=== PATIENT | female | born 2000 | race Two or more races ===

== ENCOUNTER 2024-01-08 19:37 | Outpatient (REF) | payer MEDICAID, SELFPAY ==
[2024-01-09 03:47] LABS: CT PCR NOT DETECTED (Not Detect.); NG PCR NOT DETECTED (Not Detect.)
[2024-01-09 10:56] LABS: Bacterial Vaginosis PCR POSITIVE (Negative); Candida Group PCR NOT DETECTED (Not Detect); Candida glab krusei PCR NOT DETECTED (Not Detect); Trichomonas vaginalis PCR NOT DETECTED (Not Detect)
== END 2024-01-08 19:38 | disposition home or self-care (01) ==
LOC: HO.HHCLNP 19:37
PROVIDERS: Visit Provider Internal Medicine
DX: N93.8 Other specified abnormal uterine and vaginal bleeding (principal)
CPT/HCPCS: 0352U; 0353U

== ENCOUNTER 2024-01-17 09:43 | Outpatient (REF) | payer MEDICAID, SELFPAY ==
--- NOTE | ~2024-01-17 | US_ITS ---
EXAMINATION: US ABDOMEN COMPLETE CLINICAL INFORMATION: Generalized abdominal pain radiating to lower abdomen. COMPARISON: None available. TECHNIQUE: Real-time imaging of the abdominal viscera. Technically limited study secondary to bowel gas. FINDINGS: PANCREAS: Limited visualization of pancreatic tail and head. Imaged portion of pancreatic body is unremarkable. ABDOMINAL AORTA: Unremarkable. INFERIOR VENA CAVA: Visualized portions are normal. LIVER: Hepatomegaly, 16.7 cm. Mildly increased hepatic parenchymal heterogeneity and echogenicity could be associated with hepatocellular disease/hepatic steatosis and substantially limits visualization. Correlation with liver function tests and clinical exam recommended to determine further management. GALLBLADDER: No gallstones. No gallbladder wall thickening COMMON BILE DUCT: Normal in caliber measuring 0.2 cm in diameter. RIGHT KIDNEY: No hydronephrosis. No renal calculi. Limited visualization. The kidney measures 10.5 cm in maximum dimension. LEFT KIDNEY: No hydronephrosis. No renal calculi. Limited visualization. The kidney measures 11.1 cm in maximum dimension. SPLEEN: Normal. The spleen measures 9.6 cm in maximum dimension. FREE FLUID: None. US/US abdomen complete IMPRESSION: Hepatomegaly, 16.7 cm. Mildly increased hepatic parenchymal heterogeneity and echogenicity could be associated with hepatocellular disease/hepatic steatosis and substantially limits visualization. Correlation with liver function tests and clinical exam recommended to determine further management.
== END 2024-01-17 09:44 | disposition home or self-care (01) ==
LOC: HO.US 09:43
PROVIDERS: PCP Internal Medicine; Visit Provider Internal Medicine
DX: R10.84 Generalized abdominal pain (principal); N93.8 Other specified abnormal uterine and vaginal bleeding
CPT/HCPCS: 76700

== ENCOUNTER 2024-02-20 12:30 | Outpatient (REF) | payer MEDICAID, SELFPAY ==
[2024-02-20 13:01] LABS: MANUAL DIFF FLAG NO
[2024-02-20 13:25] LABS: Basophils Percent Auto 0.2 % (0-2); Eosinophils Absolute Auto 0.1 X10*3/uL (0.0-0.4); Eosinophils Percent Auto 2.3 % (0-4); Hematocrit 37.3 % (37.0-47.0); Hemoglobin 12.6 g/dl (12.0-16.0); Imm Gran Abs Auto 0.01 X10*3/uL (0.00-0.03); Imm Gran Pct Auto 0.2 % (0.0-0.4); Lymphocytes Percent Auto 38.2 % (20-40); Mean Corpuscular HGB Conc 33.8 g/dl (31.0-35.0); Mean Corpuscular Hemoglobin 28.8 pg (27.0-33.0); Mean Corpuscular Volume 85.2 fL (80.0-98.0); Mean Platelet Volume 10.4 fL (9.4-12.3); Monocytes Absolute Auto 0.5 X10*3/uL (0.1-1.2); Monocytes Percent Auto 8.9 % (2-11); Neutrophils Absolute Auto 2.7 x10*3/uL (2.0-8.3); Neutrophils Percent Auto 50.2 % (45-73); Platelet Count 261 X10*3/uL (160-400); Red Blood Count 4.38 X10*6/uL (4.20-5.50); Red Cell Distribution Width 12.2 % (11.0-16.0); White Blood Count 5.3 X10*3/uL (4.8-10.8)
[2024-02-20 16:32] LABS: Alanine Aminotransferase 8 U/L (0-31); Albumin Level 4.7 g/dL (3.5-5.0); Alkaline Phosphatase 59 U/L (39-117); Anion Gap 14 (12-20); Aspartate Amino Transferase 16 U/L (5-31); Bilirubin Total 0.6 mg/dL (0.0-1.0); Blood Urea Nitrogen 10 mg/dL (9-16); Calcium 10.1 mg/dL (8.4-10.2); Carbon Dioxide 23 mmol/L (22-29); Chloride 105 mmol/L (96-108); Estimated Glomerular Filt Rate > 60; Glucose Random 82 mg/dL (60-115); Sodium 138 mmol/L (135-145); Total Protein 7.8 g/dL (6.5-8.0)
[2024-02-20 16:47] LABS: TSH reflex Free T4 1.15 uIU/mL (0.32-4.0)
[2024-02-21 09:23] LABS: HBS Num1 > 1000.00 mIU/mL (0-7.99); HBc Num1 0.13 S/CO (0.00-0.79); HBsAGNum1 0.34 S/CO (0.00-0.99); Hepatitis A Antibody IgM 0.37 Index (0-0.79); Hepatitis B Core Antibody Nonreactive (Nonreactive); Hepatitis B Surface Antigen Negative (Negative); ~HepC Num1 0.11 S/CO (0.00-0.79); ~Hepatitis A Antibody IgM Nonreactive (Nonreactive); ~Hepatitis B Surface Antibody REACTIVE (Nonreactive); ~Hepatitis C Antibody Nonreactive (Nonreactive)
== END 2024-02-20 12:31 | disposition home or self-care (01) ==
LOC: HO.HHCL 12:30
PROVIDERS: Visit Provider Internal Medicine
DX: R10.84 Generalized abdominal pain (principal)
CPT/HCPCS: 36415; 80053; 84443; 85025; 86704; 86706; 86709; 86803; 87340

== ENCOUNTER 2024-03-06 16:14 | Outpatient (REF) | payer MEDICAID, SELFPAY | END 2024-03-06 16:15 | disposition home or self-care (01) | LOC: HO.HHCLNP 16:14 | PROVIDERS: Visit Provider Internal Medicine | DX: Z12.4 Encounter for screening for malignant neoplasm of cervix (principal) | CPT/HCPCS: 36415; 87625; 88175 ==

== ENCOUNTER 2024-05-05 09:20 | Outpatient (REF) | payer MEDICAID, SELFPAY | END 2024-05-05 09:21 | disposition home or self-care (01) | LOC: HO.HHCL 09:20 | PROVIDERS: Visit Provider Internal Medicine | DX: R10.84 Generalized abdominal pain (principal) | CPT/HCPCS: 87338 ==

== ENCOUNTER 2024-06-24 10:45 | Outpatient (REF) | payer MEDICAID, SELFPAY ==
[2024-06-24] MEDS: iohexoL 350 MG/ML 100 ML INFUS..BTL 85 ML IV (13:00)
[2024-06-24] MEDS: Barium Sulfate Oral (Berry) 450 ML ORAL.SUSP 900 ML PO (13:00)
== END 2024-06-24 10:46 | disposition home or self-care (01) ==
LOC: HO.CT 10:45
PROVIDERS: PCP Internal Medicine; Visit Provider Internal Medicine
DX: R10.84 Generalized abdominal pain (principal); K76.0 Fatty (change of) liver, not elsewhere classified; N93.8 Other specified abnormal uterine and vaginal bleeding; R10.13 Epigastric pain
CPT/HCPCS: 74177; Q9967

== ENCOUNTER 2024-09-10 13:18 | Outpatient (REF) | payer MEDICAID, SELFPAY ==
--- OUTSIDE RECORDS SUMMARY | 2024-09-10 14:11 | XMS_ITS | Encounter Summary ---
Author Organization [employer] Address [address] [facility] [address] 7t [place] [address] Care Team Providers Care Central Scheduler Name Role Phone Marly Palma MD Primary Care Provider + Reason for Visit * Reason Onset Date Comments Results 09/02/2024 Encounter Details Date Type Department Care Team ([facility] st Contact Info) Description 09/02/2024 Telephone [facility] MEDICINE [address] [place], [place] [phone] Korin Westbrook RN Results Social History Tobacco [...] EST TC placed to pt with S production truck driver Wilmer #[id number] Palma's message below. Pt informed that the CT of the abd/pelvis from May showed a left ovarian cyst. Pt confirmed that she has a f/u appt with [facility] on 09/10/2024. Pt will make sure that the CABLE SPLICER APPRENTICE provider is aware of these results and [...] tellher that she def needs to see CABLE SPLICER APPRENTICE (referral was made last year) to fu on DUB and see if ovarian cyst needs fu (sometimes they don't need any fu at all). I will fu at upcoming appt re upper abd pain documented in this encounter Plan of Treatment Upcoming Encounters Date Type Department Care Team (Late st Contact Info) Description 10/01/2024 10:15 AM EST Office Visit [facility] MEDICINE [address] [place] [address] Marly Palma MD [address] [place] [address] 12/30/2024 10:00 AM EDT Office Visit [facility] ADULT DENTAL [address] [place] [address] Lili, Ritu [address] [place] [address] documented as of this encounter Visit Diagnoses Not on filedocumented in this encounter Additional Health Concerns Assessment Noted Time PHQ-9 Depression Total Score: 0 03/06/20 11:06 AM EDT documented as of this encounter Care Teams Central Scheduler Relationship Specialty Start Date End Date Marly Palma MD [address] [place] [phone] PCP - General Internal Medicine 03/17/24 documented as of this encounter
--- OUTSIDE RECORDS SUMMARY | 2024-09-10 14:11 | XMS_ITS | Encounter Summary ---
Author Organization [employer] Address [address] [facility] 7t [place] [address] Care Team Providers Care Studio Camera Operator Name Role Phone Marly Palma MD Primary Care Provider + Reason for Visit * Reason Onset Date Comments Call Back Request 04/30/2024 Encounter Details Date Type Department Care Team ([facility] Contact Info) Description 04/30/2024 Telephone [facility] MEDICINE [address] [place], [place] [phone] Marly Palma MD [address] [place] [address] Call Back Request Social History Tobacco Use [...] she attempted to have it done at [facility] but they advised pt to contact pcp regarding insurance. Please contact pt at [phone]. (Turkish Speaker) documented in this encounter Plan of Treatment Upcoming Encounters Date Type Department Care Team (Late st Contact Info) Description 10/01/2024 10:15 AM EST Office Visit [facility] MEDICINE [address] [place] [address] Marly Palma MD [address] [place] [address] 12/30/2024 10:00 AM EDT Office Visit [facility] ADULT DENTAL [address] [place] [address] Ritu Pearson [address] [place] [address] documented as of this encounter Visit Diagnoses Not on filedocumented in this encounter Additional Health Concerns Assessment Noted Time PHQ-9 Depression Total Score: 0 03/06/20 24 11:06 AM EDT documented as of this encounter Care Teams Studio Camera Operator Relationship Specialty Start Date End Date Marly Palma MD [address] [place] [phone] PCP - General Internal Medicine 03/17/24 documented as of this encounter
--- OUTSIDE RECORDS SUMMARY | 2024-09-10 14:11 | XMS_ITS | Encounter Summary ---
Demographics Address [address] [facility] [address] [place] [address] Home Phone Mobile Phone Email Address Preferred Language es Marital Status Single Faith Affiliation Unknown Race Other Race Ethnic Group Unknown Author Organization [employer] Address [address] [facility] [employer] 7t [place] [address] Care Team Providers Care Senior Scientist Name Role Phone Marly Palma MD Primary Care Provider + Reason for Visit * Reason Comments Scaling And Root Planing TAMI OSBORNE Encounter Details Date Type Department Care Team ([facility] st Contact Info) Description 08/12/2024 11:00 AM EST Office Visit [facility] ADULT DENTAL [address] [place] [address] Lili, Ritu [address] [place] [address] Periodontal disease (Primary Dx); Dental calculus; Gingival [...] Timeout Time: 1111 (SRP UL, LL) Location: [facility] Tooth: UL and LL Procedure: Scaling and Root Planing Verified the above with patient, server service assistant, and provider. Confirmed via patient's chart, intraorally and by radiographs. Sink Cutter: not applicable Medical Hx: Vitals: Blood pressure [...] patient including brushing technique and flossing. Recommendations: [place] two times daily, modified wayne technique, Floss daily, Electric toothbrush, Soft bristle toothbrush, [place] Tongue, Anti-sensitivity toothpaste, Listerine. Recall Frequency: 08/19/24 [...] Description 10/01/2024 10:15 AM EST Office Visit [facility] MEDICINE [address] [place] [address] Marly Palma MD [address] [place] [address] 12/30/2024 10:00 AM EDT Office Visit [facility] ADULT DENTAL [address] [place], [place] [phone] Ritu Pearson [address] [place] [address] documented as of this encounter Procedures Procedure [...] documented as of this encounter Care Teams Senior Scientist Relationship Specialty Start Date End Date Marly Palma MD [address] [place] [address] PCP - General Internal Medicine 03/17/24 documented as of this encounter
--- OUTSIDE RECORDS SUMMARY | 2024-09-10 14:11 | XMS_ITS | Clinical Summary ---
Author Organization [employer] Address [address] [facility] 7t [place] [address] Care Team Providers Care Property Maintenance Supervisor Name Role Phone Marly Palma MD Primary [...] pending and pt has information to call INTERNET E COMMERCE SPECIALIST for appoitnemt - f/u in 1 month, will refer to our INTERNET E COMMERCE SPECIALIST service to withdrawal Nexplanon if needed, may need OCTs (if no INTERNET E COMMERCE SPECIALIST appointment is made) Assessment & Plan (03/06/2024 11:45 AM EDT): R/o or could be related to Nexplanon. Keep symptom diary. Refer to INTERNET E COMMERCE SPECIALIST. Assessment & Plan (01/09/2024 2:56 PM EDT): RO vaginosis, STI Order abd US Will schedule appt for pelvic exam May need to change BC method, will discuss at upcoming appt. Encounters Date Type Department Care Team Description 09/10/2024 10:30 AM EST Office Visit [facility] ADULT DENTAL [address] [place] [phone] DDS Retained dental root (Primary Dx) 09/02/[address] [address] Korin Westbrook, [place] Results 08/19/2024 11:00 AM EST Office Visit [facility] ADULT DENTAL [address] [place] [phone] LiliRitu cat Periodontal disease (Primary Dx); Dental calculus 08/12/2024 11:00 AM EST Office Visit [facility] ADULT DENTAL [address] [place] [address] Lili Ritu Periodontal disease (Primary Dx); Dental calculus; Gingival bleeding 08/07/[address] [address] Patsy Ji, [place] Care Management ([facility] Graduation) 07/31/[address] [address] Marly Palma MD September07/23/[address] [address] Patsy Ji, RN Care Management ([facility] follow up call) 07/23/2024 Patient Outreach [address] [address] Marly Palma MD Care Coordination ([facility] Rebeka Turpinquez telephone call graduate) 07/23/2024 Patient Outreach [address] [address] Marly Palma MD Care Coordination ([address] telephone call outreach) 07/09/[address] [address] Patsy Ji RN Care Management ([facility] follow up call) 07/09/2024 Patient Outreach [address] [address] Marly Palma MD Care Coordination ([address] telephone call outreach) 06/30/2024 11:00 AM EST Office Visit [facility] ADULT DENTAL [address] [place] [address] LiliRitu Dental calculus (Primary Dx); Periodontal disease; Gingival bleeding 06/24/2024 8:00 AM EST Office Visit [facility] ADULT DENTAL [address] [place] [address] Nicole Guerrier DDS Encounter for dental examination (Primary Dx); Dental calculus; Dental caries 06/23/[address] [address] Patsy Ji RN Care Management ([facility] TC #[id number]) 06/23/2024 Patient Outreach [address] [address] Marly Palma MD Care Coordination ([address] telephone call outreach) from Last 3 [...] Description 10/01/2024 10:15 AM EST Office Visit [facility] MEDICINE [address] [place] [address] Marly Palma MD [address] [place] [address] 12/30/2024 10:00 AM EDT Office Visit [facility] ADULT DENTAL [address] [place], [place] [phone] Lili, Ritu [address] [place], [place] [phone] Health Maintenance Due Date Last Done Comments [...] EST Narrative 08/25/2024 1:34 PM EST ? [facility] ?[address] ?[place] [address] ? [address] Scan Report ? Signed ? Patient: Wendy Guerrero ?MR#: [id number] ?? 53 ? : 2000 ?Acct:[id number] ? Age/Sex: 23 / F ?ADM Date: 06/24/24 ? Loc: HO.CT ? Attending Dr: Marly Palma MD ? Ordering Physician: Marly Palma MD ?? Date of Service: 06/24/24 ?? Procedure(s): CT abdomen pelvis w IV con ?? Accession Number(s): [id number] ? cc: Marly Palma MD ? Report Number: ?? [id number]: Total DLP = ??320.00 mGy-cm ?? EXAMINATION: [...] DD/ 1237 ? TD/TT: 06/24/24 1301 ? Bee Raiser: ? Procedure Note Donotuseinterpreter, Image - 08/25/[address] [address] [address] Scan Report Signed Patient: Wendy GuerreroMR#: [id number] 53 : 2000Acct:[id number] Age/Sex: 23 / FADM Date: 06/24/24 Loc: HO.CT Attending Dr: Marly Palma MD Ordering Physician: Marly Palma MD Date of Service: 06/24/24 Procedure(s): CT abdomen pelvis w IV con Accession Number(s): [id number] cc: Marly Palma MD Report Number: [id number]: Total DLP = 320.00 mGy-cm EXAMINATION: CT [...] by: Lilian Escoto MD 08/25/2024 01:31 PM [facility] Dictated By: Lilian Escoto MD Signed By: <Electronically signed by Lilian Escoto MD in OV> 08/25/24 1331 DD/ 1237 TD/TT: 06/24/24 1301 Bee Raiser: us Marly Palma MD IMG CT PROCEDURES Final Result * ThinPrep?? Imaging Pap Refl HPV mRNA(if ASCUS,ASC-H,LSIL,HSIL,MARIA LUZ)Refl Genotype (03/06/2024 11:39 AM EDT) HPV nRNA E6/E7 [facility] HPV 16,18/45 [facility] SOURCE: SEE NOTE [facility] Comment:None given Report Status: [facility] Clinical Information: SEE NOTE [facility] Comment:None given LMP: SEE NOTE [facility] Comment:NONE GIVEN Prev. PAP: SEE NOTE [facility] Comment:NONE GIVEN Prev. BX: SEE NOTE [facility] Comment:NONE GIVEN Statement Of Adequacy: SEE NOTE [facility] Comment:Satisfactory for tito luation.Endocervical/transformation zone componentpresent. General Categorization: [facility] Interpretation/Result: SEE NOTE [facility] Comment:Cytology Results: Ne gative for intraepitheliallesion or malignancy. Cytology Comment SEE NOTE [facility] Comment:This Pap test has be en evaluated with computerassisted technology. Recreation Specialist: SEE NOTE [facility] Comment:ZL, CT(ASCP)CT scree yuli location: [facility] [address]Myuln preparation performed at: [facility] [address] [facility] No. [id number] Review Recreation Specialist: [facility] Pathologist [facility] PAP Infection [facility] See Note SEE NOTE [facility] Comment:EXPLANATORY NOTE:The Pap is a screening test for cervical cancer. It isnot a diagnostic test and is subject to false negativeand false positive results. It is most reliable when asatisfactory sample, regularly obtained, is submittedwith relevant clinical findings and history, and whenthe Pap result is evaluated along with historic andcurrent clinical information.THIS TEST WAS PERFORMED AT:[employer] [address] [id number] MERATI,MD 03/06/2024 11:3 9 AM EDT 03/06/2024 4:15 PM EDT Narrative [facility] - 03/12/2024 11:43 AM EDT SEE SCANNED RESULTS IN EMR us Marly Palma MD LAB CYTOLOGY ORDERABLES Final Result [facility] [address] [place] [phone] * Hepatitis Panel, General (02/20/2024 12:35 PM EDT) Hepatitis A IgM Nonreactive Nonreactive [facility] Comment:IgM antibodies to DELGADO V not detected; does not exclude earlyacute or recovered HAV infection. ~Hepatitis B Surface Antibody REACTIVE Nonreactive [facility] Comment:REACTIVE: > 11.99 mI U/mL Hepatitis B Core Antibody Nonreactive Nonreactive [facility] Hepatitis C Antibody Nonreactive Nonreactive [facility] Comment:Antibodies to HCV no t detected; does not exclude early acuteHCV infection. Hepatitis B Surface Ag Negative Negative [facility] Blood 02/20/2024 12:3 5 PM EDT 02/20/2024 3:59 PM EDT Marly Palma MD LAB BLOOD ORDERABLES Fin al Result [facility] [address] [place] [address] [phone] from Last 3 Months or Most Recently Relevant to Health Maintenance Insurance [place] [facility] MEDICAID STAND ADULT Care Teams Property Maintenance Supervisor Relationship Specialty Start Date End Date Marly Palma MD [address] [place] [address] PCP - General Internal Medicine 03/17/24
--- OUTSIDE RECORDS SUMMARY | 2024-09-10 14:11 | XMS_ITS | Encounter Summary ---
Author Organization [employer] Address [address] [facility] 7t [place] [address] Care Team Providers Care Restorer Paper And Prints Name Role Phone Marly Palma MD Primary Care Provider + Reason for Visit * Reason Comments Extraction Encounter Details Date Type Department Care Team ([facility] st Contact Info) Description 09/10/2024 10:30 AM EST Office Visit [facility] ADULT DENTAL [address] [place] [address]DS [address] [place] [address] Retained dental root (Primary Dx) Social History [...] 1038 (ext on tooth # 19) Location: [facility] Tooth: Mandible and #19 Procedure: Extraction Verified the above with patient, resident programs assistant, and provider. Confirmed via patient's chart, intraorally and by radiographs. Radiologic Technology Teacher: not applicable Chief Complaint Patient presents with [...] U as needed / IMP. / Xin Stock Preparation Supervisor: Meagan Trammell Dentist: Fab Lane DDS documented in this encounter Plan of Treatment Upcoming Encounters Date Type Department Care Team (Late st Contact Info) Description 10/01/2024 10:15 AM EST Office Visit [facility] MEDICINE [address] [place] [address] Marly Palma MD [address] [place] [address] 12/30/2024 10:00 AM EDT Office Visit [facility] ADULT DENTAL [address] [place] [address] Ritu Pearson [address] [place] [address] documented as of this encounter Procedures Procedure [...] documented as of this encounter Care Teams Restorer Paper And Prints Relationship Specialty Start Date End Date Marly Palma MD [address] [place] [address] PCP - General Internal Medicine 03/17/24 documented as of this encounter
--- OUTSIDE RECORDS SUMMARY | 2024-09-10 14:11 | XMS_ITS | Encounter Summary ---
Demographics Address [address] [facility] [address] [place] [address] Home Phone Mobile Phone Email Address Preferred Language es Marital Status Single Restoration Affiliation Unknown Race Other Race Ethnic Group Unknown Author Organization [employer] Address [address] [facility] 7t [place] [address] Care Team Providers Care Shoe Handler Name Role Phone Marly Palma MD Primary Care Provider + Reason for Visit * Reason Comments Scaling And Root Planing SRP UR, LR quad s Encounter Details Date Type Department Care Team ([facility] st Contact Info) Description 08/19/2024 11:00 AM EST Office Visit [facility] ADULT DENTAL [address] [place] [address] Lili, Ritu [address] [place] [address] Periodontal disease (Primary Dx); Dental calculus Social [...] your housing situation today? I have salvatore duncna 02/25/[address] you li [...] 08/19/2024 11:00 AM EST Patient ID: Wendy Guerrero is a 23 y.o. female. Time Out: Timeout Date: 08/19/24, Timeout Time: 1106 (SRP UR, LR quads) Location: [facility] Tooth: Maxilla and Mandible Procedure: Scaling and Root Planing Verified the above with patient, reproductive healthcare assistant, and provider. Confirmed via patient's chart, intraorally and by radiographs. Security Public Safety Officer: not applicable Medical Hx: Vitals: Blood pressure [...] patient including brushing technique and flossing. Recommendations: [place] two times daily, modified awyne technique, Floss daily, Electric toothbrush, Soft bristle toothbrush, [place] Tongue, Anti-sensitivity toothpaste Recall Frequency: in December [...] Description 10/01/2024 10:15 AM EST Office Visit [facility] MEDICINE [address] [place] [phone] Marly Palma MD [address] [place] [address] 12/30/2024 10:00 AM EDT Office Visit [facility] ADULT DENTAL [address] [place], [place] [phone] Ritu Pearson [address] [place] [address] documented as of this encounter Procedures Procedure [...] documented as of this encounter Care Teams Shoe Handler Relationship Specialty Start Date End Date Marly Palma MD [address] [place] [address] PCP - General Internal Medicine 03/17/24 documented as of this encounter
[2024-09-10 15:14] LABS: Hematocrit 35.9 % (37.0-47.0); Hemoglobin 12.2 g/dl (12.0-16.0); Mean Corpuscular Hemoglobin 28.4 pg (27.0-33.0); Mean Corpuscular Volume 83.7 fL (80.0-98.0); Platelet Count 262 X10*3/uL (160-400); Red Blood Count 4.29 X10*6/uL (4.20-5.50); Red Cell Distribution Width 12.6 % (11.0-16.0); White Blood Count 10.4 X10*3/uL (4.8-10.8)
[2024-09-10 16:06] LABS: HCG Quantitative < 2 mIU/mL; TSH reflex Free T4 1.41 uIU/mL (0.32-4.0)
[2024-09-11 13:57] LABS: CT PCR NOT DETECTED (Not Detect.); NG PCR NOT DETECTED (Not Detect.)
== END 2024-09-10 13:19 | disposition home or self-care (01) ==
LOC: HO.LNP 13:18
PROVIDERS: PCP Internal Medicine; Visit Provider Obstetrics & Gynecology
DX: N93.9 Abnormal uterine and vaginal bleeding, unspecified (principal); Z32.02 Encounter for pregnancy test, result negative
CPT/HCPCS: 81025; 84443; 84702; 85027; 87491; 87591; 99202

== ENCOUNTER 2024-09-10 13:18 | Outpatient (AMB) | payer MEDICAID, SELFPAY ==
--- OUTSIDE RECORDS SUMMARY | 2024-09-10 13:26 | XMS_ITS | Clinical Summary ---
Author Organization [employer] Address [address] [facility] [address] [place] [address] Care Team Providers Care Executive Pilot Name Role Phone Marly Palma MD Primary Care Provider + Allergies No known active allergies Medications famotidine (Pepcid) 40 MG tablet Take 1 tablet (40 mg) by mouth Once per day. 30 tablet 4 06/01/20 25 Active Additional Information Patient not taking.Reported on 09/10/2024 Sodium Fluoride (PreviDent 5000 Plus) 1.1 % cream Apply 1 mg to teeth 3 times daily. 1 g 3 4 Active Additional Information Patient not taking.Reported on 09/10/2024 Active Problems Problem Noted Date Diagnosed Date Retained dental root 09/10/2024 Dental calculus 06/30/2024 Periodontal disease 06/30/2024 Gingival bleeding 06/30/2024 Tinea corporis 06/01/2024 Assessment & Plan (06/04/2024 3:03 PM EST): On arms and chest Rx Lotrisone, re consult prn. Fatty liver 05/04/2024 Assessment & Plan (05/04/2024 11:43 AM EDT): - LFTs are normal, we discussed about cutting down on processed foods, sodas, and fatty meals - pt does not drink alcohol - discussed about weight reduction and increased exercise - will f/u LFTs in 6-12 months - f/u CT scan abd Epigastric pain 03/06/2024 Assessment & Plan (06/04/2024 3:01 PM EST): H.Pilory is NEG. Significantly improved, probably gastritis. Complete famotidine x 2mo Use sucralfate tid ac meals prn only. FU in 4m, if sxs are recurrent, will send to GI Assessment & Plan (03/06/2024 11:47 AM EDT): R/o PUD. Use Sulcrafate 1 gram TID AC Meals. Order HCG. Order CT scan Abdomen due to Hepatomegaly. Hepatomegaly 03/06/2024 Assessment & Plan (03/06/2024 11:48 AM EDT): US IFTs are normal. Order CT Abdomen and follow up with me in 4 weeks. BV (bacterial vaginosis) 01/09/2024 Generalized abdominal pain 01/08/2024 Assessment & Plan (05/04/2024 11:41 AM EDT): - discontinue Sucralfate and Famotidine for DUB, will obtain h. Pylori and f/u in 4 weeks - ct scan of abd pending, need further evaluation of hepatomegaly - r/o endometriosis Assessment & Plan (01/09/2024 2:56 PM EDT): Unclear related to ovulation? Endometriosis? BV? Order vaginal swabs, abd US and labs FU w me with results. Take ibuprofen prn DUB (dysfunctional uterine bleeding) 01/08/2024 Overview (05/04/2024): 03/09, 03/26, 04/16, 04/28 Assessment & Plan (06/04/2024 3:02 PM EST): Resolved? Sp BV rx. Patient will continue tracking menstruation and fu with me in 4m Continue Nexplanon. Assessment & Plan (05/04/2024 12:19 PM EDT): - ? Related to Nexplanon ? Uterine fibroid? - CT scan of the pelvis is pending and pt has information to call [facility] for appoitnemt - f/u in 1 month, will refer to our [facility] service to withdrawal Nexplanon if needed, may need OCTs (if no [facility] appointment is made) Assessment & Plan (03/06/2024 11:45 AM EDT): R/o or could be related to Nexplanon. Keep symptom diary. Refer to [facility]. Assessment & Plan (01/09/2024 2:56 PM EDT): RO vaginosis, STI Order abd US Will schedule appt for pelvic exam May need to change BC method, will discuss at upcoming appt. Encounters Date Type Department Care Team Description 09/10/2024 10:30 AM EST Office Visit [facility] [address] [place] [phone] DDS Retained dental root (Primary Dx) 09/02/[address] [address] oKrin Westbrook, [place] Results 08/19/2024 11:00 AM EST Office Visit [facility] [address] [place] [phone] LiliRitu cat Periodontal disease (Primary Dx); Dental calculus 08/12/2024 11:00 AM EST Office Visit [facility] [address] [place] [address] Lili Ritu Periodontal disease (Primary Dx); Dental calculus; Gingival bleeding 08/07/[address] [address] Patsy Ji, [place] Care Management ([facility] Graduation) 07/31/[address] [address] Marly Palma MD September07/23/[address] [address] Patsy Ji, RN Care Management ([facility] follow up call) 07/23/2024 Patient Outreach [address] [address] Marly Palma MD Care Coordination ([facility] -[facility] Rebeka Turpinquez telephone call graduate) 07/23/2024 Patient Outreach [address] [address] Marly Palma MD Care Coordination ([address] telephone call outreach) 07/09/[address] [address] Patsy Ji RN Care Management ([facility] follow up call) 07/09/2024 Patient Outreach [address] [address] Marly Palma MD Care Coordination ([address] telephone call outreach) 06/30/2024 11:00 AM EST Office Visit [facility] [address] [place] [phone] LiliRitu Dental calculus (Primary Dx); Periodontal disease; Gingival bleeding 06/24/2024 8:00 AM EST Office Visit [facility] [address] [place] [phone] Nicole Guerrier DDS Encounter for dental examination (Primary Dx); Dental calculus; Dental caries 06/23/[address] [address] Patsy Ji RN Care Management ([facility] TC #[id number]) 06/23/2024 Patient Outreach [address] [address] Marly Palma MD Care Coordination ([address] telephone call outreach) from Last 3 Months Immunizations Name Administration Dates Next Due Influenza, seasonal, injectable, preservative fr ee 05/04/2024 Social History Tobacco Use Types Packs/Day Years Used Date Smoking Tobacco: Never Smokeless Tobacco: Never Tobacco Cessation:Counseling Given: Not Answered Alcohol Use Standard Drinks/Week Comments Never 0 (1 standard drink = 0.6 oz pur e alcohol) Depression Answer Date Recorded Patient Health Questionnaire-9 Score 0 03/06/2024 Patient Health Questionnaire-9 Score 0 03/06/2024 Last PHQ-9: Questionnaire Data Not on file 0 03/06/2024 Housing Stability Answer Date Recorded What is your housing situation today? I have salvatore duncan 02/25/[address] you li ve. Do you have problems with any of the following? None of the above 02/25/2024 Food Insecurity Answer Date Recorded Within the past 12 months, y ou worried that your food would run out before you got money to buy more: Sometimes True 2023 Within the past 12 months,th e food you bought just didn't last and you didn't have enough money to get more: Sometimes True 05/12/2024 Transportation Answer Date Recorded In the past 12 months, has l ack of transportation kept you from medical appts, meetings, work or from getting things needed for daily living? Yes, it has kept me from medical appointments or getting medications. 05/12/2024 Utilities Answer Date Recorded In the past 12 months, has t he electric, gas, oil or water company threatened to shut off services in your home? No 02/25/2024 Depression Answer Date Recorded Patient Health Questionnaire-2 Score 0 03/06/2024 Internet Access Answer Date Recorded Internet Access Q1 Yes 03/30/2024 Internet Access Q2 Not on file 03/30/2024 Comments No Sex and Gender Information Value Date Recorded Sex Assigned at Female 12/13/2023 1:19 PM EDT Legal Sex Female 12:10 PM EDT Gender Identity Female 12/13/2023 1:19 PM EDT Sexual Orientation Straight 01/08/2024 11 :08 AM EDT Last Filed Vital Signs Vital Sign Reading Time Taken Comments Blood Pressure 122/88 09/10/2024 10:39 AM EST Pulse 83 06/01/2024 3:39 PM EST Temperature 36.9 ??C (98.5 ??F) 06/01/2024 3:39 PM ES T Respiratory Rate 16 06/01/2024 3:39 PM EST Oxygen Saturation 99% 06/01/2024 3:39 PM EST Inhaled Oxygen Concentration - - Weight 63 kg (138 lb 12.8 oz) 06/01/2024 3:39 PM EST Height 160 cm (5' 3 ) 06/01/2024 3:39 PM EST Body Mass Index 24.59 06/01/2024 3:39 PM EST Plan of Treatment Upcoming Encounters Date Type Department Care Team (Late st Contact Info) Description 10/01/2024 10:15 AM EST Office Visit [facility] [address] [place] [address] Marly Palma MD [address] [place] [address] 12/30/2024 10:00 AM EDT Office Visit [facility] [address] [place], [place] [phone] Lili, Ritu [address] [place], [place] [phone] Health Maintenance Due Date Last Done Comments HIV Screening 1998 Family Planning (PISQ) 2013 HPV Vaccines (1 - 3-dose series) 2013 DTaP/Tdap/Td Vaccines (1 - Tdap) 2017 Hepatitis A Vaccines (1 of 2 - Risk 2-dose series) 2017 Hepatitis B Vaccines (1 of 3 - 19+ 3-dose series) 2017 COVID-19 Vaccine ( - 2023-2 5 season) 2024 Dental Oral Exam 12/23/2024 06/24/2024 Dental Prophylaxis 12/30/2024 06/30/2024 Depression Screening 03/06/2025 03/06/2024, 03/06/2024 SDOH Screening 05/12/2025 05/12/2024 Alcohol/Substance Use Screening 06/01/2025 06/01/2024 Dental X-Ray: Bitewings 06/25/2025 06/24/2024 Tobacco Screening 09/10/2025 09/10/2024 Pap Smear 03/06/2027 03/06/2024 Dental X-Ray: Full Mouth 06/25/2027 06/24/2024 Zoster Vaccines (1 of 2) 2048 RSV Patients and Patients Aged 60 years or older (1 - 1-dose 75+ series) 2073 Hepatitis C Screening Completed 02/20/2024 Influenza Vaccine Completed 05/04/2024 HIB Vaccines Aged Out No longer eligi ble based on patient's age to complete this topic IPV Vaccines Aged Out No longer eligi ble based on patient's age to complete this topic Meningococcal Vaccine Aged Out No elisa logan eligible based on patient's age to complete this topic Pneumococcal Vaccine: Pediatrics (0 to 5 Years) and At-Risk Patients (6 to 49) Years) Aged Out No longer eligible b ased on patient's age to complete this topic RSV under 20 months Aged Out No longe r eligible based on patient's age to complete this topic Rotavirus Vaccines Aged Out No longer eligible based on patient's age to complete this topic Procedures Procedure Name Priority Date/Time Associated Diagnosis Comments CASE PRESENTATION, DETAILED AND EXTENSIVE TREATMENT PLANNING Routine 09/10/2024 10:30 AM EST 19 EXTRACTION, ERUPTED TOOTH OR EXPOSED ROOT (ELEVATION/FORCEPS REMOVAL) Routine 09/10/2024 10:30 AM EST CASE PRESENTATION, DETAILED AND EXTENSIVE TREATMENT PLANNING Routine 08/19/2024 11:00 AM EST ORAL HYGIENE INSTRUCTIONS Routine 08/19/2024 11:00 AM EST LR PERIODONTAL SCALING AND ROOT PLANING - 4 OR MORE TEETH PER QUADRANT Routine 08/19/2024 11:00 AM EST UR PERIODONTAL SCALING AND ROOT PLANING - 4 OR MORE TEETH PER QUADRANT Routine 08/19/2024 11:00 AM EST CASE PRESENTATION, DETAILED AND EXTENSIVE TREATMENT PLANNING Routine 08/12/2024 11:00 AM EST Periodontal disease Dental calculus Gingival bleeding ORAL HYGIENE INSTRUCTIONS Routine 08/12/2024 11:00 AM EST Periodontal disease Dental calculus Gingival bleeding LL PERIODONTAL SCALING AND ROOT PLANING - 4 OR MORE TEETH PER QUADRANT Routine 08/12/2024 11:00 AM EST Periodontal disease Dental calculus Gingival bleeding UL PERIODONTAL SCALING AND ROOT PLANING - 4 OR MORE TEETH PER QUADRANT Routine 08/12/2024 11:00 AM EST Periodontal disease Dental calculus Gingival bleeding CASE PRESENTATION, DETAILED AND EXTENSIVE TREATMENT PLANNING Routine 06/30/2024 11:00 AM EST Dental calculus Periodontal disease Gingival bleeding ORAL HYGIENE INSTRUCTIONS Routine 06/30/2024 11:00 AM EST Dental calculus Periodontal disease Gingival bleeding PROPHYLAXIS - ADULT Routine 06/30/2024 1 1:00 AM EST Dental calculus Periodontal disease Gingival bleeding CT ABDOMEN PELVIS W CONTRAST Routine 06/24/2024 12:37 PM EST DUB (dysfunctional uterine bleeding) Fatty liver Generalized abdominal pain CASE PRESENTATION, DETAILED AND EXTENSIVE TREATMENT PLANNING Routine 06/24/2024 8:00 AM EST Encounter for dental examination Dental calculus Dental caries COMPREHENSIVE ORAL EVALUATION - NEW OR ESTABLISHED PATIENT Routine 06/24/2024 8:00 AM EST Encounter for dental examination Dental calculus Dental caries INTRAORAL - COMPLETE SERIES OF RADIOGRAPHIC IMAGES Routine 06/24/2024 8:00 AM EST Encounter for dental examination Dental calculus Dental caries 30 EXTRACTION Routine 06/24/2024 12:00 AM EST THINPREP?? IMAGING PAP REFL HPV MRNA(IF ASCUS,ASC-H,LSIL) Routine 03/06/2024 11:39 AM EDT HEPATITIS PANEL, GENERAL Routine 02/20/2024 12:35 PM EDT Generalized abdominal pain from Last 3 Months or Most Recently Relevant to Health Maintenance Results * CT Abdomen Pelvis w/ Contrast (06/24/2024 12:37 PM EST) Anatomical Region Laterality Modality Body, Pelvis, Abdomen Computed T omography 06/24/2024 12:3 7 PM EST Narrative 08/25/2024 1:34 PM EST ? [facility] ?[address] ?[place] [address] ? CT Scan Report ? Signed ? Patient: Wendy Guerrero ?MR#: [id number] ?? 53 ? : 2000 ?Acct:[id number] ? Age/Sex: 23 / F ?ADM Date: 06/24/24 ? Loc: HO.CT ? Attending Dr: Marly Palma MD ? Ordering Physician: Marly Palma MD ?? Date of Service: 06/24/24 ?? Procedure(s): CT abdomen pelvis w IV con ?? Accession Number(s): [id number] ? cc: Marly Palma MD ? Report Number: ?? [id number]: Total DLP = ??320.00 mGy-cm ?? EXAMINATION: ?? CT ABDOMEN AND PELVIS WITH CONTRAST ? CLINICAL INFORMATION: ?? Chronic abdominal pain ? COMPARISON: ?? Ultrasound dated 01/17/2024 ? TECHNIQUE: ?? Multidetector volumetric images were obtained from the superior aspect ?? of the liver through the pubic symphysis following administration 85 mL ?? of Omnipaque 350 intravenous contrast. Sagittal and coronal reformatted ?? images were obtained on the technologist's workstation. ? Oral contrast: No ? This CT examination was performed using dose optimization techniques as ?? appropriate, variously including the following: ?? *Automated exposure control ?? *Adjustment of mA and/or kV according to patient size (this includes ?? techniques or standardized protocols for targeted exams where dose is ?? matched to indication/reason for exam; i.e. extremities or head) ?? *Use of iterative reconstruction technique ?? DLP: 320 mGycm ? FINDINGS: ? LUNG BASES: Unremarkable. ? ABDOMINAL AND PELVIC WALL: ??Unremarkable. ? LIVER AND BILIARY TREE: Liver measures upper limits of normal at 15.9 ?? cm in the craniocaudal dimension. No focal hepatic lesion or ?? intrahepatic biliary ductal dilatation. ? GALLBLADDER: Unremarkable. ? PANCREAS: Unremarkable. ? SPLEEN: Unremarkable. ? ADRENAL GLANDS: Unremarkable. ? KIDNEYS AND URETERS: Unremarkable. ? GASTROINTESTINAL TRACT: Unremarkable. ??The appendix is within normal ?? limits. ? VASCULAR: Unremarkable ? LYMPH NODES/PERITONEUM: No lymphadenopathy. ? FREE FLUID: None. ? BLADDER: Unremarkable. ? PELVIC VISCERA: Left adnexal intraovarian 2.9 x 1.9 cm cyst. ? OSSEOUS STRUCTURES: Unremarkable. ? CT/CT abdomen pelvis w IV con ?? IMPRESSION: ?? * ??Liver measures upper limits of normal at 15.9 cm in the craniocaudal ?? dimension. No focal hepatic lesion or intrahepatic biliary ductal ?? dilatation. ? * ??Left adnexal intraovarian 2.9 cm cyst. ? Electronically signed by: ??Lilian Escoto MD ??08/25/2024 01:31 PM EST RP ? Dictated By: ?Lilian Escoto MD ? Signed By: ?<Electronically signed by Lilian Escoto MD in OV> ? 08/25/ 1331 ? DD/ 1237 ? TD/TT: 06/24/24 1301 ? Aquaculture Farmer: ? Procedure Note Donotuseinterpreter, Image - 08/25/[address] [address] [address] Scan Report Signed Patient: Wendy GuerreroMR#: [id number] 53 : 2000Acct:[id number] Age/Sex: 23 / FADM Date: 06/24/24 Loc: HO.CT Attending Dr: Marly Palma MD Ordering Physician: Marly Palma MD Date of Service: 06/24/24 Procedure(s): CT abdomen pelvis w IV con Accession Number(s): [id number] cc: Marly Palma MD Report Number: [id number]: Total DLP = 320.00 mGy-cm EXAMINATION: CT ABDOMEN AND PELVIS WITH CONTRAST CLINICAL INFORMATION: Chronic abdominal pain COMPARISON: Ultrasound dated 01/17/2024 TECHNIQUE: Multidetector volumetric images were obtained from the superior aspect of the liver through the pubic symphysis following administration 85 mL of Omnipaque 350 intravenous contrast. Sagittal and coronal reformatted images were obtained on the technologist's workstation. Oral contrast: No This CT examination was performed using dose optimization techniques as appropriate, variously including the following: *Automated exposure control *Adjustment of mA and/or kV according to patient size (this includes techniques or standardized protocols for targeted exams where dose is matched to indication/reason for exam; i.e. extremities or head) *Use of iterative reconstruction technique DLP: 320 mGycm FINDINGS: LUNG BASES: Unremarkable. ABDOMINAL AND PELVIC WALL: Unremarkable. LIVER AND BILIARY TREE: Liver measures upper limits of normal at 15.9 cm in the craniocaudal dimension. No focal hepatic lesion or intrahepatic biliary ductal dilatation. GALLBLADDER: Unremarkable. PANCREAS: Unremarkable. SPLEEN: Unremarkable. ADRENAL GLANDS: Unremarkable. KIDNEYS AND URETERS: Unremarkable. GASTROINTESTINAL TRACT: Unremarkable. The appendix is within normal limits. VASCULAR: Unremarkable LYMPH NODES/PERITONEUM: No lymphadenopathy. FREE FLUID: None. BLADDER: Unremarkable. PELVIC VISCERA: Left adnexal intraovarian 2.9 x 1.9 cm cyst. OSSEOUS STRUCTURES: Unremarkable. CT/CT abdomen pelvis w IV con IMPRESSION: * Liver measures upper limits of normal at 15.9 cm in the craniocaudal dimension. No focal hepatic lesion or intrahepatic biliary ductal dilatation. * Left adnexal intraovarian 2.9 cm cyst. Electronically signed by: Lilian Escoto MD 08/25/2024 01:31 PM [facility] Dictated By: Lilian Escoto MD Signed By: <Electronically signed by Lilian Escoto MD in OV> 08/25/24 1331 DD/ 1237 TD/TT: 06/24/24 1301 Aquaculture Farmer: us Marly Palma MD IMG CT PROCEDURES Final Result * ThinPrep?? Imaging Pap Refl HPV mRNA(if ASCUS,ASC-H,LSIL,HSIL,MARIA LUZ)Refl Genotype (03/06/2024 11:39 AM EDT) HPV nRNA E6/E7 [facility] HPV 16,18/45 [facility] SOURCE: SEE NOTE [facility] Comment:None given Report Status: [facility] Clinical Information: SEE NOTE [facility] Comment:None given LMP: SEE NOTE [facility] Comment:NONE GIVEN Prev. PAP: SEE NOTE [facility] Comment:NONE GIVEN Prev. BX: SEE NOTE [facility] Comment:NONE GIVEN Statement Of Adequacy: SEE NOTE [facility] Comment:Satisfactory for tito luation.Endocervical/transformation zone componentpresent. General Categorization: [facility] Interpretation/Result: SEE NOTE [facility] Comment:Cytology Results: Ne gative for intraepitheliallesion or malignancy. Cytology Comment SEE NOTE [facility] Comment:This Pap test has be en evaluated with computerassisted technology. Scout Sniper: SEE NOTE [facility] Comment:ZL, CT(ASCP)CT scree yuli location: [facility] [id number] preparation performed at: [facility] [address] [facility] No. [id number] Review Scout Sniper: [facility] Pathologist [facility] PAP Infection [facility] See Note SEE NOTE [facility] Comment:EXPLANATORY NOTE:The Pap is a screening test for cervical cancer. It isnot a diagnostic test and is subject to false negativeand false positive results. It is most reliable when asatisfactory sample, regularly obtained, is submittedwith relevant clinical findings and history, and whenthe Pap result is evaluated along with historic andcurrent clinical information.THIS TEST WAS PERFORMED AT:[facility] [address] [id number] MERATI,MD 03/06/2024 11:3 9 AM EDT 03/06/2024 4:15 PM EDT Narrative [facility] - 03/12/2024 11:43 AM EDT SEE SCANNED RESULTS IN EMR us Marly Palma MD LAB CYTOLOGY ORDERABLES Final Result [facility] [address] [place] [phone] * Hepatitis Panel, General (02/20/2024 12:35 PM EDT) Hepatitis A IgM Nonreactive Nonreactive [facility] Comment:IgM antibodies to DELGADO V not detected; does not exclude earlyacute or recovered HAV infection. ~Hepatitis B Surface Antibody REACTIVE Nonreactive [facility] Comment:REACTIVE: > 11.99 mI U/mL Hepatitis B Core Antibody Nonreactive Nonreactive [facility] Hepatitis C Antibody Nonreactive Nonreactive [facility] Comment:Antibodies to HCV no t detected; does not exclude early acuteHCV infection. Hepatitis B Surface Ag Negative Negative [facility] Blood 02/20/2024 12:3 5 PM EDT 02/20/2024 3:59 PM EDT Marly Palma MD LAB BLOOD ORDERABLES Fin al Result [facility] [address] [place] [address] [phone] from Last 3 Months or Most Recently Relevant to Health Maintenance Insurance [place] [facility] MEDICAID STAND ADULT Care Teams Executive Pilot Relationship Specialty Start Date End Date Marly Palma MD [address] [place] [address] PCP - General Internal Medicine 03/17/24
--- OUTSIDE RECORDS SUMMARY | 2024-09-10 13:26 | XMS_ITS | Encounter Summary ---
Author Organization [employer] Address [address] [facility] 7t [place] [address] Care Team Providers Care Voting Machine Repairer Name Role Phone Marly Palma MD Primary Care Provider + Reason for Visit * Reason Onset Date Comments Call Back Request 04/30/2024 Encounter Details Date Type Department Care Team ([facility] Contact Info) Description 04/30/2024 Telephone [facility] [address] [place], [place] [phone] Marly Palma MD [address] [place] [address] Call Back Request Social History Tobacco Use Types Packs/Day Years Used Date Smoking Tobacco: Never Smokeless Tobacco: Never Alcohol Use Standard Drinks/Week Comments Never 0 [...] before you got money to buy more: Never True 02/25/2024 Within the past 12 months,th e food you bought just didn't last and you didn't have enough money to get more: Never True Transportation Answer Date Recorded In the past 12 months, has l ack of transportation kept you from medical appts, meetings, work or from getting things needed for daily living? No 02/25/2024 Utilities Answer Date Recorded In the past [...] Orientation Straight 01/08/2024 11 :08 AM EDT documented as of this encounter Miscellaneous Notes * Telephone Encounter - Yo Westley - 04/30/2024 10:13 AM EDT Tc from pt calling in regards to CT scan of the abdomen stating she attempted to have it done at [facility] but they advised pt to contact pcp regarding insurance. Please contact pt at [phone]. (Mongolian Speaker) documented in this encounter Plan of Treatment Upcoming Encounters Date Type Department Care Team (Late st Contact Info) Description 10/01/2024 10:15 AM EST Office Visit [facility] [address] [place] [address] Marly Palma MD [address] [place] [address] 12/30/2024 10:00 AM EDT Office Visit [facility] ADULT DENTAL [address] [place] [address] Ritu Pearson [address] [place] [address] documented as of this encounter Visit Diagnoses Not on filedocumented in this encounter Additional Health Concerns Assessment Noted Time PHQ-9 Depression Total Score: 0 03/06/20 24 11:06 AM EDT documented as of this encounter Care Teams Voting Machine Repairer Relationship Specialty Start Date End Date Marly Palma MD [address] [place] [address] PCP - General Internal Medicine 03/17/24 documented as of this encounter
--- OUTSIDE RECORDS SUMMARY | 2024-09-10 13:26 | XMS_ITS | Encounter Summary ---
Demographics Address [address] [facility] [address] [place] [address] Home Phone Mobile Phone Email Address Preferred Language es Marital Status Single Caodaism Affiliation Unknown Race Other Race Ethnic Group Unknown Author Organization [employer] Address [address] [facility] 7t [place] [address] Care Team Providers Care Anvil Worker Name Role Phone Marly Palma MD Primary Care Provider + Reason for Visit * Reason Comments Scaling And Root Planing TAMI OSBORNE Encounter Details Date Type Department Care Team ([facility] st Contact Info) Description 08/12/2024 11:00 AM EST Office Visit [facility] ADULT DENTAL [address] [place] [address] Lili, Ritu [address] [place] [address] Periodontal disease (Primary Dx); Dental calculus; Gingival bleeding Social History Tobacco Use Types Packs/Day Years [...] AM EDT documented as of this encounter Last Filed Vital Signs Vital Sign Reading Time Taken Comments Blood Pressure 108/66 08/12/2024 11:10 AM EST Pulse - - Temperature - - Respiratory Rate - - Oxygen Saturation - - Inhaled Oxygen Concentration - - Weight - - Height - - Body Mass Index - - documented in this encounter Progress Notes * Ritu Pearson - 08/12/2024 11:00 AM EST Patient ID: Wendy Guerrero is a 23 y.o. female. Time Out: Timeout Date: 08/12/24, Timeout Time: 1111 (SRP UL, LL) Location: [facility] Tooth: UL and LL Procedure: Scaling and Root Planing Verified the above with patient, logging assistant, and provider. Confirmed via patient's chart, intraorally and by radiographs. Senior Medical Technologist: not applicable Medical Hx: Vitals: Blood pressure 108/66. Medications, Med Hx reviewed with patient and updated in chart. Treatment Provided Dental procedures in this visit D4341 - PERIODONTAL SCALING AND ROOT PLANING - 4 OR MORE TEETH PER QUADRANT UL (Completed) Service provider: Ritu Pearson Billdeep provider: Nicole Guerrier DDS D4341 - PERIODONTAL SCALING AND ROOT PLANING - 4 OR MORE TEETH PER QUADRANT LL (Completed) Service provider: Ritu Pearson Billdeep provider: Nicole Guerrier DDS D1330 - ORAL HYGIENE INSTRUCTIONS (Completed) Service provider: Ritu Pearson Billing provider: Nicole Guerrier DDS D9450 - ADJUNCTIVE GENERAL SERVICES - PROFESSIONAL VISITS - CASE PRESENTATION, SUBSEQUENT TO DETAILED AND EXTENSIVE TREATMENT PLANNING (Completed) Service provider: Ritu Pearson Billing provider: Nicole Guerrier DDS Topical: 20% Benzocaine Anesthesia: 2% Lidocaine (Xylocaine) w/ 1:100,000 epinephrine Number of Cartridges: 1.5 Injection Type: Buccal infiltration, Palatal infiltration, Long buccal nerve block, Mental nerve block, and mandibular incisal. Confirmed profound anesthesia. Oral Cancer Screening: No lesions Head/Neck Exam: raised dark mole on face Instruments Used: Ultrasonic Scalers and Hand Scalers Fluoride: N/A Calculus: Moderate and Subgingival Plaque: Moderate and Generalized Stain: Light Bleeding: Moderate Gingiva: Edematous OH: Poor Oral hygiene instructions provided to patient including brushing technique and flossing. Recommendations: [place] two times daily, modified wayne technique, Floss daily, Electric toothbrush, Soft bristle toothbrush, [place] Tongue, Anti-sensitivity toothpaste, Listerine. Recall Frequency: 08/19/24 for SRP UR, LR quads Pt still has #19 to EXO, the root is horizontally placed. NV: Dr. Lane for EXO #19 Hygienist: Ritu Pearson RDH * Nicole Guerrier DDS - 08/12/2024 11:00 AM EST I have reviewed the documentation and dental procedures made by the rendering provider, Ritu Pearson RDH, and approve their chart entries for this visit. Nicole Guerrier DDS documented in this encounter Plan of Treatment Upcoming Encounters Date Type Department Care Team (Late st Contact Info) Description 10/01/2024 10:15 AM EST Office Visit [facility] MEDICINE [address] [place] [phone] Marly Palma MD [address] [place] [address] 12/30/2024 10:00 AM EDT Office Visit [facility] ADULT DENTAL [address] [place], [place] [phone] Ritu Pearson [address] [place] [address] documented as of this encounter Procedures Procedure Name Priority Date/Time Associated Diagnosis Comments LL PERIODONTAL SCALING AND ROOT PLANING - [...] EST Periodontal disease Dental calculus Gingival bleeding documented in this encounter Visit Diagnoses Diagnosis Periodontal disease- Primary Unspecified gingival and periodontal disease Dental calculus Accretions on teeth Gingival bleeding Other specified periodontal diseases documented in this encounter Additional Health Concerns Assessment Noted Time PHQ-9 Depression Total Score: 0 03/06/20 11:06 AM EDT documented as of this encounter Care Teams Anvil Worker Relationship Specialty Start Date End Date Marly Palma MD [address] [place] [address] PCP - General Internal Medicine 03/17/24 documented as of this encounter
--- OUTSIDE RECORDS SUMMARY | 2024-09-10 13:26 | XMS_ITS | Encounter Summary ---
Demographics Address [address] [facility] [address] [place] [address] Home Phone Mobile Phone Email Address Preferred Language es Marital Status Single Church Affiliation Unknown Race Other Race Ethnic Group Unknown Author Organization [employer] Address [address] [facility] 7t [place] [address] Care Team Providers Care Manager Local Name Role Phone Marly Palma MD Primary Care Provider + Reason for Visit * Reason Comments Scaling And Root Planing SRP UR, LR quad s Encounter Details Date Type Department Care Team ([facility] st Contact Info) Description 08/19/2024 11:00 AM EST Office Visit [facility] ADULT DENTAL [address] [place] [address] Lili, Ritu [address] [place] [address] Periodontal disease (Primary Dx); Dental calculus Social History Tobacco Use Types Packs/Day Years [...] Sign Reading Time Taken Comments Blood Pressure 108/70 08/19/2024 11:05 AM EST Pulse - - Temperature - - Respiratory Rate - - Oxygen Saturation - - Inhaled Oxygen Concentration - - Weight - - Height - - Body Mass Index - - documented in this encounter Progress Notes * Ritu Pearson - 08/19/2024 11:00 AM EST Patient ID: Wendy Geurrero is a 23 y.o. female. Time Out: Timeout Date: 08/19/24, Timeout Time: 1106 (SRP UR, LR quads) Location: [facility] Tooth: Maxilla and Mandible Procedure: Scaling and Root Planing Verified the above with patient, machine assistant, and provider. Confirmed via patient's chart, intraorally and by radiographs. Gold Layer: not applicable Medical Hx: Vitals: Blood pressure 108/70. Medications, Med Hx reviewed with patient and updated in chart. Treatment Provided Dental procedures in this visit D4341 - PERIODONTAL SCALING AND ROOT PLANING - 4 OR MORE TEETH PER QUADRANT UR (Completed) Service provider: Ritu Pearson Billing provider: Nicole Guerrier DDS D4341 - PERIODONTAL SCALING AND ROOT PLANING - 4 OR MORE TEETH PER QUADRANT LR (Completed) Service provider: Ritu Pearson Billdeep provider: [...] (Xylocaine) w/ 1:100,000 epinephrine Number of Cartridges: 1 Injection Type: Buccal infiltration, Palatal infiltration, Long buccal nerve block, Mental nerve block, Nasopalatine nerve block, and mandibular incisal. Confirmed profound anesthesia. Oral Cancer Screening: No lesions Head/Neck Exam: large raised mole on right side upper lip Instruments Used: Ultrasonic Scalers and Hand Scalers Fluoride: N/A Calculus: Moderate and Subgingival Plaque: Light, Moderate, and Generalized Stain: Light Bleeding: Light and Moderate, post-op rinsed with chlorhexidine. Gingiva: Edematous OH: needs improvement. Oral hygiene instructions provided to patient including brushing technique and flossing. Recommendations: [place] two times daily, modified wayne technique, Floss daily, Electric toothbrush, Soft bristle toothbrush, [place] Tongue, Anti-sensitivity toothpaste Recall Frequency: in December 2024 for prophy and perio chart post SRP NV: Dr. Francisco for restorations and Dr. Lane for EXO #19 root. Hygienist: Ritu Pearson RDH * Nicole Guerrier DDS - 08/19/2024 11:00 AM EST I have reviewed the documentation and dental procedures made by the rendering provider, Ritu Pearson RDH , and approve their chart entries for this visit. Nicole Guerrier DDS documented in this encounter Plan of Treatment Upcoming Encounters Date Type Department Care Team (Late st Contact Info) Description 10/01/2024 10:15 AM EST Office Visit [facility] MEDICINE [address] [place] [phone] Marly Palma MD [address] [place] [address] 12/30/2024 10:00 AM EDT Office Visit [facility] ADULT DENTAL [address] [place], [place] [phone] Ritu Pearson [address] [place] [address] documented as of this encounter Procedures Procedure Name Priority Date/Time Associated Diagnosis Comments LR PERIODONTAL SCALING AND ROOT PLANING - 4 OR MORE TEETH PER QUADRANT Routine 08/19/2024 11:00 AM EST UR PERIODONTAL SCALING AND ROOT PLANING - 4 OR MORE TEETH PER QUADRANT Routine 08/19/2024 11:00 AM EST ORAL HYGIENE INSTRUCTIONS Routine 2024 11:00 AM EST CASE PRESENTATION, DETAILED AND EXTENSIVE TREATMENT PLANNING Routine 08/19/2024 11:00 AM EST documented in this encounter Visit Diagnoses Diagnosis Periodontal disease- Primary Unspecified gingival and periodontal disease Dental calculus Accretions on teeth documented in this encounter Additional Health Concerns Assessment Noted Time PHQ-9 Depression Total Score: 0 03/06/20 11:06 AM EDT documented as of this encounter Care Teams Manager Local Relationship Specialty Start Date End Date Marly Palma MD [address] [place] [phone] PCP - General Internal Medicine 03/17/24 documented as of this encounter
--- OUTSIDE RECORDS SUMMARY | 2024-09-10 13:26 | XMS_ITS | Encounter Summary ---
Author Organization [employer] Address [address] [place] [address] Care Team Providers Care Dye Jig Operator Name Role Phone Marly Palma MD Primary Care Provider + Reason for Visit * Reason Onset Date Comments Results 09/02/2024 Encounter Details Date Type Department Care Team ([facility] st Contact Info) Description 09/02/[address] [facility] [address] [place], [place] [phone] Korin Westbrook RN Results Social History Tobacco Use Types Packs/Day Years [...] is your housing situation today? I have salvatorejania duncan 02/25/[address] you [...] encounter Miscellaneous Notes * Telephone Encounter - Korin Westbrook RN - 09/02/2024 2:27 PM EST TC placed to pt with S perfusionist Wilmer #[id number] Palma's message below. Pt informed that the CT of the abd/pelvis from May showed a left ovarian cyst. Pt confirmed that she has a f/u appt with [facility] on 09/10/2024. Pt will make sure that the CORN PRESS OPERATOR provider is aware of these results and the proceeding care/interventions needed. Pt also reminded of upcoming appt with PCP on 09/03/[address] Palma will discuss this information further. ----- Message from Marly Palma MD sent at 09/02/2024 1:17 PM EST ----- CT scan abd/pelvis on 06/24/24 (due to abd pain/DUB) showed left ovarian cyst which could be physiological due to hormonal changes? (Unclear if patient still nexplanon?). Please call patient and tellher that she def needs to see CORN PRESS OPERATOR (referral was made last year) to fu on DUB and see if ovarian cyst needs fu (sometimes they don't need any fu at all). I will fu at upcoming appt re upper abd pain documented in this encounter Plan of Treatment Upcoming Encounters Date Type Department Care Team (Late st Contact Info) Description 10/01/2024 10:15 AM EST Office Visit [facility] [address] [place] [address] Marly Palma MD [address] [place] [address] 12/30/2024 10:00 AM EDT Office Visit [facility] ADULT DENTAL [address] [place] [address] Lili, Ritu [address] [place] [address] documented as of this encounter Visit Diagnoses Not on filedocumented in this encounter Additional Health Concerns Assessment Noted Time PHQ-9 Depression Total Score: 0 03/06/20 11:06 AM EDT documented as of this encounter Care Teams Dye Jig Operator Relationship Specialty Start Date End Date Marly Palma MD [address] [place] [phone] PCP - General Internal Medicine 03/17/24 documented as of this encounter
--- OUTSIDE RECORDS SUMMARY | 2024-09-10 13:26 | XMS_ITS | Encounter Summary ---
Author Organization [employer] Address [address] [facility] 7t [place] [address] Care Team Providers Care Tree Deadener Name Role Phone Marly Palma MD Primary Care Provider + Reason for Visit * Reason Comments Extraction Encounter Details Date Type Department Care Team ([facility] st Contact Info) Description 09/10/2024 10:30 AM EST Office Visit [facility] ADULT DENTAL [address] [place] [address] DDS [address] [place] [address] Retained dental root (Primary Dx) Social History Tobacco Use Types Packs/Day Years [...] Pressure 122/88 09/10/2024 10:39 AM EST Pulse - - Temperature - - Respiratory Rate - - Oxygen Saturation - - Inhaled Oxygen Concentration - - Weight - - Height - - Body Mass Index - - documented in this encounter Progress Notes * Fab Lane, DDS - 09/10/2024 10:30 AM EST Patient ID: Wendy Guerrero is a 24 y.o. female. Time Out: Timeout Date: 09/10/24, Timeout Time: 1038 (ext on tooth # 19) Location: [facility] Tooth: Mandible and #19 Procedure: Extraction Verified the above with patient, surgical assistant, and provider. Confirmed via patient's chart, intraorally and by radiographs. Rn Transplant: not applicable Chief Complaint Patient presents with Extraction Medical Hx: Vitals: Blood pressure 122/88. Past Medical History: Diagnosis Date Bleeding gums Periodontal disease Medications: Outpatient Encounter Medications as of 09/10/2024 Medication Sig Dispense Refill famotidine (Pepcid) 40 MG tablet Take 1 tablet (40 mg) by mouth Once per day. (Patient not taking: Reported on 09/10/2024) 30 tablet 0 Sodium Fluoride (PreviDent 5000 Plus) 1.1 % cream Apply 1 mg to teeth 3 times daily. (Patient not taking: Reported on 09/10/2024) 1 g 3 No facility-administered encounter medications on file as of 09/10/2024. Consent Obtained: The risks, benefits, indications, potential complications, and alternatives were explained to the patient and informed consent was obtained with good understanding. Treatment Provided: Dental procedures in this visit D7140 - EXTRACTION, ERUPTED TOOTH OR EXPOSED ROOT (ELEVATION/FORCEPS REMOVAL) 19 (Completed) Service provider: Fab Lane DDS Billing provider: Fab Lane DDS D9450 - CASE PRESENTATION, DETAILED AND EXTENSIVE TREATMENT PLANNING (Completed) Service provider: Fab Lane DDS Billing provider: Fab Lane DDS Diagnosis: Retained roort Topical: 20% Benzocaine Anesthesia: 2% Lidocaine (Xylocaine) w/ 1:100,000 epinephrine Number of Cartridges: 1 Injection Type: Intrapapillary injection Confirmed profound anesthesia. Pharyngeal curtain and bite block placed. Removed tooth with elevators and forceps. Apices intact. Surgical Extraction: Yes, #19 Socket curetted & irrigated with sterile water. Compressed alveolar bone. Sutures: None Needed All adjacent teeth intact. Hemostasis achieved. Complications: None. Pt tolerated procedure well. Pt states having analgesics at home Written and verbal post-op instructions given. Patient discharged in stable condition; ambulatory, alert, and oriented. NV: F/ U as needed / IMP. / Xin Blood Splatter Analyst: Meagan Trammell Dentist: Fab Lane DDS documented in this encounter Plan of Treatment Upcoming Encounters Date Type Department Care Team (Late st Contact Info) Description 10/01/2024 10:15 AM EST Office Visit [facility] MEDICINE [address] [place] [address] Marly Palma MD [address] [place] [address] 12/30/2024 10:00 AM EDT Office Visit [facility] ADULT DENTAL [address] [place] [address] Ritu Pearson [address] [place] [address] documented as of this encounter Procedures Procedure Name Priority Date/Time Associated Diagnosis Comments 19 EXTRACTION, ERUPTED TOOTH OR EXPOSED ROOT (ELEVATION/FORCEPS REMOVAL) Routine 09/10/2024 10:30 AM EST CASE PRESENTATION, DETAILED AND EXTENSIVE TREATMENT PLANNING Routine 09/10/2024 10:30 AM EST documented in this encounter Visit Diagnoses Diagnosis Retained dental root- Primary documented in this encounter Additional Health Concerns Assessment Noted Time PHQ-9 Depression Total Score: 0 03/06/20 11:06 AM EDT documented as of this encounter Care Teams Tree Deadener Relationship Specialty Start Date End Date Marly Palma MD [address] [place] [address] PCP - General Internal Medicine 03/17/24 documented as of this encounter
--- NOTE | 2024-09-10 13:30 | MHC.OFFVIS ---
Vital Signs 09/10/24 13:46 Height 5 ft 3 in Weight 132 lb BMI 23.4 BP 116/66 Intake Visit Reasons: FIRE TENDER AUB/PCP Ref Director Diabetes Required: Yes Director Diabetes Language: Wire Products Inspector Services: Director Diabetes Present (in person) Director Diabetes Name: Sofia DAVILA Information Interpreted: non-clinical & clinical Mysql Database Administrator: Mysql Database Administrator Present (Sofia DAVILA) Accompanied by: Self / Same As Patient Allergies No Known Allergies Allergy (Verified 09/10/24 13:48) Is last menstrual period known: Yes Last menstrual period: 09/05/24 HPI Comments Details: Presenting complaining of irregular menstrual cycles associated with passage of blood clots. The patient has 2 rods implants for contraception in her left arm in [place] 3 years ago and since then her menstrual cycles as being irregular Last Pap smear done in 01/19 was negative [facility] Social History Household Members: Spouse and Children Housing: Apartment Alcohol intake: current Alcohol intake frequency: holidays/special occasions only Patient Tobacco Use Status: Never used Tobacco Current occupational status: unemployed Sexually active: Yes Gender identity: Female Female Reproductive History Menstrual Date of last menstrual period: 09/05/24 control method: implanted Total pregnancies: 2 Full term: 2 Number of Living Children: 2 Review of Systems Const All systems reviewed & are unremarkable except as noted in HPI and below Card Reports as per HPI Resp Reports as per HPI GI Reports as per HPI and Reports no additional complaints Reports as per HPI Physical Exam Vital Signs: Last Vital Signs BP 116/66 09/10/24 13:46 BMI result Body Mass Index 23.4 Const General: cooperative, healthy appearing and comfortable Chest Chest palpation & inspection: normal inspection of the chest and normal palpation of entire chest wall Breast/axilla inspection: normal inspection of the breasts and normal inspection of the axillae Breast/axilla palpation: normal palpation of the breasts, normal palpation of the axillae and no axillary lymphadenopathy Resp Effort & Inspection: normal respiratory effort Auscultation: clear to auscultation bilaterally Percussion: percussion normal Cardio Palpation: normal PMI Rate: regular rate Rhythm: regular rhythm Heart sounds: no murmurs and no rubs Peripheral pulses: Peripheral pulses 2+ throughout GI Inspection: Yes normal to inspection Palpation (GI): Soft to palpation, nontender, no guarding, not rigid and No hepatosplenomegaly present Percussion: Yes normal to percussion Auscultation: normal bowel sounds Rectal Exam - Female: deferred General: Yes bladder normal to palpation External Female Exam: No lesion Speculum Exam - Vagina: normal appearance of the vagina, normal palpation, normal vaginal discharge and not erythematous Speculum Exam - Cervix: normal appearance of the cervix and normal palpation Bimanual exam- vagina & uterus: normal bimanual exam, normal palpation, uterine size normal, bladder normal to palpation, consistency normal and normal palpation Bimanual Exam- Adnexa, other: normal adnexae, no masses and no tenderness Results AMB Test Urine AMB Test Urine Negative Last Edit by Sofia Sands CMA on 09/10/24 13:52 Results Reviewed Results Reviewed: Laboratory Last Values Tst Clinic Negative 09/10/24 13:51 Assessment & Plan Assessment & Plan (1) Abnormal uterine bleeding (AUB): Comment: With 2 akshat implants in the left arm implant inserted in [place] Code(s): N93.9 - Abnormal uterine and vaginal bleeding, unspecified Category: Medical Plan: GC and chlamydia taken CBC, TSH, HCG, and pelvic ultrasound ordered. Discussed with the patient the different causes of abnormal bleeding including thyroid disorders, uterine and ovarian pathology and other potential causes. Discussed with the patient the work up including CBC (to r/o anemia), TSH, pelvic Ultrasound. All questions answered and the patient verbalized understanding. Instructed the patient to schedule a follow-up appointment in 2 weeks. Orders: Orders CT NG by PCR Today N93.9 - Abnormal uterine and vaginal bleeding, unspecified TSH reflex Free T4 Today N93.9 - Abnormal uterine and vaginal bleeding, unspecified HCG Quantitative Today N93.9 - Abnormal uterine and vaginal bleeding, unspecified Complete Blood Count no Diff Today N93.9 - Abnormal uterine and vaginal bleeding, unspecified US pelvic and transvaginal Today N93.9 - Abnormal uterine and vaginal bleeding, unspecified AMB HCG Urine Test Today Z32.02 - Encounter for test, result negative Coding Level of Care Code New Pt Level 3 (02506) Diagnoses Abnormal uterine bleeding (AUB) N93.9
[2024-09-10 13:46] VITALS: BP 116/66; BMI 23.4
== END 2024-09-10 14:08 | disposition home or self-care (01) ==
LOC: HO.HWS 13:18
PROVIDERS: PCP Internal Medicine; Visit Provider Obstetrics & Gynecology
DX: Z32.02 Encounter for pregnancy test, result negative (principal); N93.9 Abnormal uterine and vaginal bleeding, unspecified
CPT/HCPCS: 99203

== ENCOUNTER 2024-09-10 14:15 | Outpatient (REF) | payer MEDICAID, SELFPAY | END 2024-09-10 14:16 | disposition home or self-care (01) | LOC: HO.LAB 14:15 | PROVIDERS: PCP Internal Medicine; Visit Provider Obstetrics & Gynecology | DX: Z13.89 Encounter for screening for other disorder (principal) ==

== ENCOUNTER 2024-09-30 12:45 | Outpatient (REF) | payer MEDICAID, SELFPAY ==
--- NOTE | ~2024-09-30 | US_ITS ---
EXAMINATION: US PELVIS CLINICAL INFORMATION: Abnormal uterus and vaginal bleed. COMPARISON: Correlated to CT dated June 24, 2024 reporting a 2.9 cm cyst, left adnexa. TECHNIQUE: Ultrasound of the pelvis is performed using both transabdominal and transvaginal transducers along with Doppler. Transvaginal imaging is performed due to inadequate visualization transabdominally. FINDINGS: Uterus: The uterus is anteversion flexion and measures 10 x 5 x 5 cm. Cervix appears normal. The double wall endometrial thickness is 3 mm. The uterus is smooth in contour and has normal myometrial echogenicity. No visible fibroid. Adnexa: Both ovaries are visualized. There is normal color flow to the adnexa. There is no ovarian torsion. There is no pelvic ascites or fluid collection. Right ovary measures 3 x 2 x 2 cm. Volume: 8 cc. No solid or cystic lesion. Left ovary measures 6 x 4 x 6 cm. Volume: 69 cc. There is a 4.8 cm well-defined anechoic lesion without septations or nodular component nor flow on color Doppler interrogation. US/US pelvic and transvaginal IMPRESSION: 4.8 cm cyst, left ovary. Larger since prior examination. No ovarian torsion. Normal uterus. Normal right ovary. Electronically signed by: Fausto Leos MD 09/30/2024 03:03 PM KADE
--- OUTSIDE RECORDS SUMMARY | 2024-09-30 15:05 | XMS_ITS | Clinical Summary ---
Author Organization [employer] Address [address] [facility] 7t [place] [address] Care Team Providers Care Fishing Tool Technician Oil Well Name Role Phone Marly Palma MD Primary [...] pending and pt has information to call FLAP MAKER for appoitnemt - f/u in 1 month, will refer to our FLAP MAKER service to withdrawal Nexplanon if needed, may need OCTs (if no FLAP MAKER appointment is made) Assessment & Plan (03/06/2024 11:45 AM EDT): R/o or could be related to Nexplanon. Keep symptom diary. Refer to FLAP MAKER. Assessment & Plan (01/09/2024 2:56 PM EDT): RO vaginosis, STI Order abd US Will schedule appt for pelvic exam May need to change BC method, will discuss at upcoming appt. Encounters Date Type Department Care Team Description 09/29/2024 Telephone [facility] [address] [place] [address] Marly Palma MD Chart prep 09/24/2024 1:45 PM EST Office Visit [facility] OPTOMETRY [address] [place] [address] TarkaJohanna, OD Regular astigmatism, bilateral (Primary Dx) 09/24/2024 Travel 09/10/2024 10:30 AM EST Office Visit [facility] ADULT DENTAL [address] [place] [address] Retained dental root (Primary Dx) 09/10/2024 Orders Only GENERIC EXTERNAL DATA DEPARTMENT Provider, Generic External Data 09/02/2024 Telephone [facility] [address] [place], [place] [phone] Korin Westbrook RN Results 08/19/2024 11:00 AM EST Office Visit [facility] ADULT DENTAL [address] [place] [address] Ritu Pearson Periodontal disease (Primary Dx); Dental calculus 08/12/2024 11:00 AM EST Office Visit [facility] ADULT DENTAL [address] [place] [address] LiliRitu cat Periodontal disease (Primary Dx); Dental calculus; Gingival bleeding 08/07/2024 Telephone [facility] [address] [place], [place] [phone] Patsy Ji RN Care Management (C3 Graduation) 07/31/[address] [address] Marly Palma MD September07/23/[address] [address] Patsy Ji RN Care Management (C3CM follow up call) 07/23/2024 Patient Outreach [address] [address] Marly Palma MD Care Coordination (C3 CM-[facility] telephone call graduate) 07/23/2024 Patient Outreach [address] [address] Marly Palma MD Care Coordination (C3 CM-[facility] telephone call outreach) 07/09/[address] [address] Patsy Ji RN Care Management (C3 follow up call) 07/09/2024 Patient Outreach [address] [address] Marly Palma MD [facility]ination [facility] from Last 3 Months [...] 10/01/2024 10:15 AM EST Office Visit [facility] MEDICINE [address] [place] [address] Marly Palma MD [address] [place] [address] 12/30/2024 10:00 AM EDT Office Visit [facility] ADULT DENTAL [address] [place] [address] Ritu Pearson [address] [place] [address] Health Maintenance Due Date Last Done Comments [...] Dental X-Ray: Bitewings 06/25/2025 06/24/2024 Tobacco Screening 09/24/2025 09/24/2024 Pap Smear 03/06/2027 03/06/2024 Dental X-Ray: Full [...] Procedure Name Priority Date/Time Associated Diagnosis Comments HCG, TOTAL, QN Routine 09/10/2024 2:45 PM EST TSH W/REFLEX TO FT4 Routine 09/10/2024 2 :45 PM EST CBC Routine 09/10/2024 2:45 PM EST CHLAMYDIA/N. GONORRHOEAE RNA, TMA, UROGENITAL Routine 09/10/2024 2:40 PM EST CASE PRESENTATION, DETAILED AND EXTENSIVE TREATMENT [...] EST Periodontal disease Dental calculus Gingival bleeding PROPHYLAXIS - ADULT Routine 06/30/2024 1 1:00 AM EST Dental calculus Periodontal disease Gingival bleeding INTRAORAL - COMPLETE SERIES OF RADIOGRAPHIC IMAGES Routine 06/24/2024 8:00 AM EST Encounter for dental examination Dental calculus Dental caries COMPREHENSIVE ORAL EVALUATION - NEW OR ESTABLISHED PATIENT Routine 06/24/2024 8:00 AM EST Encounter for dental examination Dental calculus Dental caries THINPREP?? IMAGING PAP REFL HPV MRNA(IF ASCUS,ASC-H,LSIL) Routine 03/06/2024 11:39 AM EDT HEPATITIS PANEL, GENERAL Routine 02/20/2024 12:35 PM EDT Generalized abdominal pain from Last 3 Months or Most Recently Relevant to Health Maintenance Results * TSH with Reflex to Free T4 (09/10/2024 2:45 PM EST) TSH reflex Free T4 1.41 0.32 - 4.0 uIU/mL [facility] 09/10/2024 2:45 PM EST 09/10/2024 2:45 PM EST us Generic External Data Provider LAB BLOOD ORDERAB LES Final Result Performing Organization Address City/State/[facility] Co de Phone Number [facility] [address] [place] [address] [phone] * (ABNORMAL) CBC (09/10/2024 2:45 PM EST) Pathologist [facility] White Blood Count 10.4 4.8 - 10.8 X10*3/uL [facility] Red Blood Count 4.29 4.20 - 5.50 X10*6/uL [facility] Hemoglobin 12.2 12.0 - 16.0 g/dl [facility] Hematocrit 35.9(L) 37.0 - 47.0 % [facility] Mean Corpuscular Volume 83.7 80.0 - 98.0 fL [facility] Mean Corpuscular Hemoglobin 28.4 27.0 - 33.0 pg [facility] Mean Corpuscular HGB Conc 34.0 31.0 - 35.0 g/dl [facility] Red Cell Distribution Width 12.6 11.0 - 16.0 % [facility] Platelet Count 262 160 - 400 X10*3/uL [facility] Mean Platelet Volume 10.0 9.4 - 12.3 fL [facility] NRBC Pct Auto 0.0 0.0 - 0.2 /100WBC [facility] NRBC Abs Auto 0.000 0.0 - 0.012 X10*3/uL [facility] 09/10/2024 2:45 PM EST 09/10/2024 2:45 PM EST Generic External Data Provider LAB BLOOD ORDERAB LES Final Result Performing Organization Address City/[facility]/ZIP Co de Phone Number [facility] [address] [place] [address] [phone] * hCG, Total, Quantitative (09/10/2024 2:45 PM EST) HCG Quantitative <2 mIU/mL [facility] Comment:Weeks post LMP Appro ximate hCG(Last Menstrual Period) Range (mIU/ml)3 - 4 weeks 9 - 1304 - 5 weeks 75 - 2,6005 - 6 weeks 850 - 20,8006 - 7 weeks 4000 - 100,2007 - 12 weeks 11,500 - 289,69602 - 16 weeks 18,300 - 137,52399 - 29 weeks (2nd trimester) 1,400 - 53,60841 - 41 weeks (3rd trimester) 940 - 60,000The Reyse B- hCG assay is used for the early detection ofpregnancy; it cannot be used to diagnose any conditionunrelated to . If a B-hCG level is not supportedby the clinical evidence, results should be confirmed by analternative method (qualitative urine hCG, for example). 09/10/2024 2:45 PM EST 09/10/2024 2:45 PM EST Generic External Data Provider LAB BLOOD ORDERAB LES Final Result Performing Organization Address City/[facility]/ZIP Co de Phone Number [facility] [address] [place] [address] [phone] * Chlamydia/N. Gonorrhoeae RNA, TMA, Urogenitial (09/10/2024 2:40 PM EST) CT PCR NOT DETECTED Not Detect. [facility] Comment:A not detected test result does not exclude the possibilityof infection because test results can be affected byimproper specimen collection, concurrent antibiotic therapy,or the number of organisms in the specimen which may bebelow the sensitivity of the test. As with many diagnostictests, results from the Xpert CT/NG assay should beinterpreted in conjunction with other laboratory andclinical data available to the clinician.Xpert CT/NG performance has not been evaluated in patientsless than 14 years of age. The assay should not be used forthe evaluationof suspected sexual abuse or for other medico-legalindications. Additional testing is recommended in anycircumstance when false positive or false negative resultscould lead to adverse medical, social or psychologicalconsequences. NG PCR NOT DETECTED Not Detect. [facility] Comment:A not detected test result does not exclude the possibilityof infection because test results can be affected byimproper specimen collection, concurrent antibiotic therapy,or the number of organisms in the specimen which may bebelow the sensitivity of the test. As with many diagnostictests, results from the Xpert CT/NG assay should beinterpreted in conjunction with other laboratory andclinical data available to the clinician.Xpert CT/NG performance has not been evaluated in patientsless than 14 years of age. The assay should not be used forthe evaluationof suspected sexual abuse or for other medico-legalindications. Additional testing is recommended in anycircumstance when false positive or false negative resultscould lead to adverse medical, social or psychologicalconsequences. 09/10/2024 2:40 PM EST 09/10/2024 3:01 PM EST Narrative [facility] - 09/11/2024 1:57 PM EST Vaginal us Generic External Data Provider LAB MICROBIOLOGY - GENERAL ORDERABLES Final Result [facility] [address] [place] [address] [phone] * ThinPrep?? Imaging Pap Refl HPV mRNA(if ASCUS,ASC-H,LSIL,HSIL,MARIA LUZ)Refl Genotype (03/06/2024 11:39 AM EDT) HPV nRNA E6/E7 TNP [facility] HPV 16,18/45 [facility] SOURCE: SEE NOTE [facility] Comment:None given Report Status: [facility] Clinical Information: SEE NOTE [facility] Comment:None given LMP: SEE NOTE [facility] Comment:NONE GIVEN Prev. PAP: SEE NOTE [facility] Comment:NONE GIVEN Prev. BX: SEE NOTE [facility] Comment:NONE GIVEN Statement Of Adequacy: SEE NOTE [facility] Comment:Satisfactory for tito luation.Endocervical/transformation zone componentpresent. General Categorization: [facility] Interpretation/Result: SEE NOTE [facility] Comment:Cytology Results: Ne gative for intraepitheliallesion or malignancy. Cytology Comment SEE NOTE [facility] Comment:This Pap test has be en evaluated with computerassisted technology. Pulp Drier Firer: SEE NOTE [facility] Comment:ZL, CT(ASCP)CT scree yuli location: [employer] [address]Fgjec preparation performed at: [employer], [address] [place] [address] CLIA No. [id number] Review Pulp Drier Firer: [facility] Pathologist [facility] PAP Infection [facility] See Note SEE NOTE [facility] Comment:EXPLANATORY NOTE:The Pap is a screening test for cervical cancer. It isnot a diagnostic test and is subject to false negativeand false positive results. It is most reliable when asatisfactory sample, regularly obtained, is submittedwith relevant clinical findings and history, and whenthe Pap result is evaluated along with historic andcurrent clinical information.THIS TEST WAS PERFORMED AT:[employer] [address] [id number] MERATI,MD 03/06/2024 11:3 9 AM EDT 03/06/2024 4:15 PM EDT Narrative [facility] - 03/12/2024 11:43 AM EDT SEE SCANNED RESULTS IN EMR us Marly Palma MD LAB CYTOLOGY ORDERABLES Final Result Performing Organization Address [facility] Co de Phone Number [facility] [address] [place] [address] [phone] * Hepatitis Panel, General (02/20/2024 12:35 PM EDT) Hepatitis A IgM Nonreactive Nonreactive [facility] Comment:IgM antibodies to DELGADO V not detected; does not exclude earlyacute or recovered HAV infection. ~Hepatitis B Surface Antibody REACTIVE Nonreactive [facility] Comment:REACTIVE: > 11.99 mI U/mL Hepatitis B Core Antibody Nonreactive Nonreactive [facility] Hepatitis C Antibody Nonreactive Nonreactive [facility] Comment:Antibodies to HCV no t detected; does not exclude early acuteHCV infection. Hepatitis B Surface Ag Negative Negative [facility] Blood 02/20/2024 12:3 5 PM EDT 02/20/2024 3:59 PM EDT Marly Palma MD LAB BLOOD ORDERABLES Fin al Result Performing Organization Address [facility] Co de Phone Number [facility] [address] [place] [address] [phone] from Last 3 Months or Most Recently Relevant to Health Maintenance Insurance * Guarantor: Wendy Guerrero Account Type Relation to Patient Date of Phone Billing Address Personal/Family Self [address] [place] [address] [facility] C[facility] * Guarantor: Wendy Guerrero Account Type Relation to Patient Date of Phone Billing Address Dental Self [address] [place] [address] [facility] [employer] [place] Care Teams Fishing Tool Technician Oil Well Relationship Specialty Start Date End Date Marly Palma MD [address] [place] [address] PCP - General Internal Medicine 03/17/24
--- OUTSIDE RECORDS SUMMARY | 2024-09-30 15:05 | XMS_ITS | Encounter Summary ---
Demographics Address [address] [place] [address] [address] [place] [address] Home Phone Mobile Phone Email Address Preferred Language es Marital Status Single Taoist Affiliation Unknown Race Other Race Ethnic Group Unknown Author Organization [employer] Address [address] [facility] [address] [place] [address] Care Team Providers Care Nursing Professor Name Role Phone Marly Palma MD Primary Care Provider + Encounter Details Date Type Department Care Team ([facility] st Contact Info) Description 09/10/2024 Orders Only GENERIC EXTERNAL DATA DEPARTMENT Provider, Generic External Data Social History Tobacco Use Types Packs/Day Years [...] AM EDT documented as of this encounter Plan of Treatment Upcoming Encounters Date Type Department Care Team (Late st Contact Info) Description 10/01/2024 10:15 AM EST Office Visit [facility] MEDICINE [address] [place] [address] Marly Palma MD [address] [place] [address] 12/30/2024 10:00 AM EDT Office Visit [facility] ADULT DENTAL [address] [place] [address] Herbie Pearsonaris [address] [place] [address] documented as of this encounter Procedures Procedure Name Priority Date/Time Associated Diagnosis Comments TSH W/REFLEX TO FT4 Routine 09/10/2024 2 :45 PM EST CBC Routine 09/10/2024 2:45 PM EST HCG, TOTAL, QN Routine 09/10/2024 2:45 PM EST CHLAMYDIA/N. GONORRHOEAE RNA, TMA, UROGENITAL Routine 09/10/2024 2:40 PM EST documented in this encounter Results * hCG, Total, Quantitative (09/10/2024 2:45 PM EST) HCG Quantitative <2 mIU/mL [facility] Comment:Weeks post LMP Appro ximate hCG(Last Menstrual Period) Range (mIU/ml)3 - 4 weeks 9 - 1304 - 5 weeks 75 - 2,6005 - 6 weeks 850 - 20,8006 - 7 weeks 4000 - 100,2007 - 12 weeks 11,500 - 289,73481 - 16 weeks 18,300 - 137,30965 - 29 weeks (2nd trimester) 1,400 - 53,85164 - 41 weeks (3rd trimester) 940 - 60,000The Reyes B- hCG assay is used for the early detection ofpregnancy; it cannot be used to diagnose any conditionunrelated to . If a B-hCG level is not supportedby the clinical evidence, results should be confirmed by analternative method (qualitative urine hCG, for example). 09/10/2024 2:45 PM EST 09/10/2024 2:45 PM EST Generic External Data Provider LAB BLOOD ORDERAB LES Final Result Performing Organization Address [facility] Co de Phone Number [facility] [address] [place] [phone] * TSH with Reflex to Free T4 (09/10/2024 2:45 PM EST) TSH reflex Free T4 1.41 0.32 - 4.0 uIU/mL [facility] 09/10/2024 2:45 PM EST 09/10/2024 2:45 PM EST Generic External Data Provider LAB BLOOD ORDERAB LES Final Result Performing Organization Address [facility] Co de Phone Number [facility] [address] [place] [phone] * (ABNORMAL) CBC (09/10/2024 2:45 PM EST) White Blood Count 10.4 4.8 - 10.8 X10*3/uL [facility] Red Blood Count 4.29 4.20 - 5.50 X10*6/uL [facility] Hemoglobin 12.2 12.0 - 16.0 g/dl [facility] Hematocrit 35.9(L) 37.0 - 47.0 % [facility] Mean Corpuscular Volume 83.7 80.0 - 98.0 fL [facility] Mean Corpuscular Hemoglobin 28.4 27.0 - 33.0 pg [facility] Mean Corpuscular HGB Conc 34.0 31.0 - 35.0 g/dl [facility] Red Cell Distribution Width 12.6 11.0 - 16.0 % [facility] Platelet Count 262 160 - 400 X10*3/uL [facility] Mean Platelet Volume 10.0 9.4 - 12.3 fL [facility] NRBC Pct Auto 0.0 0.0 - 0.2 /100WBC [facility] NRBC Abs Auto 0.000 0.0 - 0.012 X10*3/uL [facility] 09/10/2024 2:45 PM EST 09/10/2024 2:45 PM EST us Generic External Data Provider LAB BLOOD ORDERAB LES Final Result [facility] [address] [place] [address] [phone] * Chlamydia/N. Gonorrhoeae RNA, TMA, Urogenitial (09/10/2024 2:40 PM EST) CT PCR NOT DETECTED Not Detect. [facility] Comment:A not detected test result does [...] psychologicalconsequences. NG PCR NOT DETECTED Not Detect. [facility] Comment:A not detected test result does [...] PM EST 09/10/2024 3:01 PM EST Narrative [facility] - 09/11/2024 1:57 PM EST Vaginal us Generic External Data Provider LAB MICROBIOLOGY - GENERAL ORDERABLES Final Result [facility] [address] [place] [address] [phone] documented in this encounter Visit Diagnoses Not on filedocumented in this encounter Additional Health Concerns Assessment Noted Time PHQ-9 Depression Total Score: 0 03/06/20 11:06 AM EDT documented as of this encounter Care Teams Nursing Professor Relationship Specialty Start Date End Date Marly Palma MD [address] [place] [address] PCP - General Internal Medicine 03/17/24 documented as of this encounter
--- OUTSIDE RECORDS SUMMARY | 2024-09-30 15:05 | XMS_ITS | Encounter Summary ---
Author Organization [employer] Address [address] [facility] 7t [place] [address] Care Team Providers Care Usability Specialist Name Role Phone Marly Palma MD Primary Care Provider + Reason for Visit * Reason Onset Date Comments Call Back Request 04/30/2024 Encounter Details Date Type Department Care Team ([facility] Contact Info) Description 04/30/2024 Telephone [facility] MEDICINE [address] [place], [place] [phone] Marly Palma MD [address] [place] [address] Call Back Request Social History Tobacco Use [...] she attempted to have it done at [facility] but they advised pt to contact pcp regarding insurance. Please contact pt at [phone]. (Frisian Speaker) documented in this encounter Plan of Treatment Upcoming Encounters Date Type Department Care Team (Late st Contact Info) Description 10/01/2024 10:15 AM EST Office Visit [facility] MEDICINE [address] [place] [address] Marly Palma MD [address] [place] [address] 12/30/2024 10:00 AM EDT Office Visit [facility] ADULT DENTAL [address] [place] [address] Ritu Pearson [address] [place] [address] documented as of this encounter Visit Diagnoses Not on filedocumented in this encounter Additional Health Concerns Assessment Noted Time PHQ-9 Depression Total Score: 0 03/06/20 24 11:06 AM EDT documented as of this encounter Care Teams Usability Specialist Relationship Specialty Start Date End Date Marly Palma MD [address] [place] [phone] PCP - General Internal Medicine 03/17/24 documented as of this encounter
--- OUTSIDE RECORDS SUMMARY | 2024-09-30 15:05 | XMS_ITS | Encounter Summary ---
Author Organization [employer] Address [address] [facility] 7t [place] [address] Care Team Providers Care Faculty Dean Name Role Phone Marly Palma MD Primary Care Provider + Reason for Visit * Reason Onset Date Comments Chart prep 09/29/2024 Encounter Details Date Type Department Care Team ([facility] st Contact Info) Description 09/29/2024 Telephone [facility] MEDICINE [address] [place] [address] Marly Palma MD [address] [place] [address] Chart prep Social History Tobacco Use Types Packs/Day Years [...] encounter Miscellaneous Notes * Telephone Encounter - Josee Bender [place] - 09/29/2024 9:27 AM EST Chart Prep Labs: done Images: done Vaccines due: yes Referrals: complete Screenings: STI screening Overdue care gaps: Up to date documented in this encounter Plan of Treatment Upcoming Encounters Date Type Department Care Team (Late st Contact Info) Description 10/01/2024 10:15 AM EST Office Visit [facility] MEDICINE [address] [place] [phone] Marly Palma MD [address] [place] [address] 12/30/2024 10:00 AM EDT Office Visit [facility] ADULT DENTAL [address] [place] [address] Ritu Pearson [address] [place] [address] documented as of this encounter Visit Diagnoses Not on filedocumented in this encounter Additional Health Concerns Assessment Noted Time PHQ-9 Depression Total Score: 0 03/06/20 24 11:06 AM EDT documented as of this encounter Care Teams Faculty Dean Relationship Specialty Start Date End Date Marly Palma MD [address] [place] [phone] PCP - General Internal Medicine 03/17/24 documented as of this encounter
--- OUTSIDE RECORDS SUMMARY | 2024-09-30 15:05 | XMS_ITS | Encounter Summary ---
Author Organization [employer] Address [address] [facility] 7t [place] [address] Care Team Providers Care Video Arcade Manager Name Role Phone Marly Palma MD Primary Care Provider + Reason for Visit * Reason Comments Extraction Encounter Details Date Type Department Care Team ([facility] st Contact Info) Description 09/10/2024 10:30 AM EST Office Visit [facility] ADULT DENTAL [address] [place] [address] [place] [address] Retained dental root (Primary Dx) Social History [...] 1038 (ext on tooth # 19) Location: [facility] Tooth: Mandible and #19 Procedure: Extraction Verified the above with patient, housekeeper/laundry assistant, and provider. Confirmed via patient's chart, intraorally and by radiographs. Law Reporter: not applicable Chief Complaint Patient presents with [...] U as needed / IMP. / Xin Paper Winder: Meagan Trammell Dentist: Fab Lane DDS documented in this encounter Plan of Treatment Upcoming Encounters Date Type Department Care Team (Late st Contact Info) Description 10/01/2024 10:15 AM EST Office Visit [facility] MEDICINE [address] [place] [address] Marly Palma MD [address] [place] [address] 12/30/2024 10:00 AM EDT Office Visit [facility] ADULT DENTAL [address] [place] [address] Ritu Pearson [address] [place] [address] documented as of this encounter Procedures Procedure [...] documented as of this encounter Care Teams Video Arcade Manager Relationship Specialty Start Date End Date Marly Palma MD [address] [place] [address] PCP - General Internal Medicine 03/17/24 documented as of this encounter
--- OUTSIDE RECORDS SUMMARY | 2024-09-30 15:05 | XMS_ITS | Encounter Summary ---
Author Organization [employer] Address [address] [place] [address] Care Team Providers Care Automatic Lump Making Machine Tender Name Role Phone Marly Palma MD Primary Care Provider + Encounter Details Date Type Department Care Team (Latest Contact Info) Description 09/24/2024 Travel Social History Tobacco Use Types Packs/Day Years [...] Description 10/01/2024 10:15 AM EST Office Visit [facility] MED[facility]INE [address] [place] [address] Marly Palma MD [address] [place] [address] 12/30/2024 10:00 AM EDT Office Visit [facility] ADULT DENTAL [address] [place] [address] Lili, Ritu [address] [place] [address] documented as of this encounter Visit Diagnoses Not on filedocumented in this encounter Additional Health Concerns Assessment Noted Time PHQ-9 Depression Total Score: 0 03/06/20 11:06 AM EDT documented as of this encounter Care Teams Automatic Lump Making Machine Tender Relationship Specialty Start Date End Date Marly Palma MD [address] [place] [address] PCP - General Internal Medicine 03/17/24 documented as of this encounter
--- OUTSIDE RECORDS SUMMARY | 2024-09-30 15:05 | XMS_ITS | Encounter Summary ---
Demographics Address [address] [place] [address] [address] [place] [address] Home Phone Mobile Phone Email Address Preferred Language es Marital Status Single Zoroastrian Affiliation Unknown Race Other Race Ethnic Group Unknown Author Organization [employer] Address [address] [facility] [address] [place] [address] Care Team Providers Care Director Pharmaceutical Name Role Phone Marly Palma MD Primary Care Provider + Encounter Details Date Type Department Care Team ([facility] st Contact Info) Description 09/24/2024 1:45 PM EST Office Visit [facility] OPTOMETRY [address] [place] [address] TarkaJohanna, OD [address] [place] [address] Regular astigmatism, bilateral (Primary Dx) Social History Tobacco Use Types [...] AM EDT documented as of this encounter Progress Notes * Johanna Rosales, OD - 09/24/2024 1:45 PM EST Eye Care Progress Note Patient ID: Wendy Guerrero is a 24 y.o. female. HPI Patient was referred by PCP for comprehensive eye exam to establish care. Patient reports mild blurry vision both eyes (OU) at distance. Today is the patient's first eye exam. Last edited by Johanna Rosales, OD on 09/24/2024 1:52 PM. Current Outpatient Medications Medication Sig Dispense Refill famotidine (Pepcid) 40 MG tablet Take 1 tablet (40 mg) by mouth Once per day. (Patient not taking: Reported on 09/10/2024) 30 tablet 0 Sodium Fluoride (PreviDent 5000 Plus) 1.1 % cream Apply 1 mg to teeth 3 times daily. (Patient not taking: Reported on 09/10/2024) 1 g 3 No current facility-administered medications for this visit. Past Medical History: Diagnosis Date Bleeding gums Periodontal disease History reviewed. No pertinent surgical history. No family history on file. Tobacco Use: Low Risk (09/24/2024) Tobacco Smoking Tobacco Use: Never Smokeless Tobacco Use: Never Passive Exposure: Not on file No Known Allergies ROS Positive for: Eyes Negative for: Constitutional, Gastrointestinal, Neurological, Skin, Genitourinary, Musculoskeletal,HENT, Endocrine, Cardiovascular, Respiratory, Psychiatric, Allergic/Imm, Heme/Lymph Last edited by Johanna Rosales, OD on 09/24/2024 1:51 PM. Base Eye Exam Visual Acuity (Snellen - Linear) Right Left Dist sc 20/25 +2 20/25 +1 Tonometry (iCare , 2:07 PM) Right Left Pressure 15 15 Pupils Pupils APD Right PERRL None Left PERRL None Visual Neal (Counting fingers) Left Right Full Full Extraocular Movement Right Left Full Full Neuro/Psych Oriented x3: Yes Mood/Affect: Normal Dilation Both eyes: 1.0% tropicamide @ 2:07 PM Slit Lamp and Fundus Exam External Exam Right Left External Normal Normal Slit Lamp Exam Right Left Lids/Lashes Clean and clear Clean and clear Conjunctiva/Sclera White and quiet White and quiet Cornea Clear Clear Anterior Chamber Deep and quiet, angles open gr 4 Deep and quiet, angles open gr 4 Iris Flat, round Flat, round Lens Clear Clear Fundus Exam Right Left Vitreous Clear Clear Disc [place] and healthy [place] and healthy C/D Ratio Vertical 0.15 0.20 C/D Ratio Horizontal 0.15 0.20 Macula Flat, even pigmentation Flat, even pigmentation Vessels AV 2/3, normal course and caliber AV 2/3, normal course and caliber Periphery No holes/tears/detachments 360 No holes/tears/detachments 360 Refraction Manifest Refraction (Subjective) Sphere Cylinder Holt Dist VA Right +0.00 -0.25 105 20/20-2 Left +0.00 -0.50 160 20/20-2 Assessment and Plan Diagnoses and all orders for this visit: Regular astigmatism, bilateral - No spec Rx needed at this time - Ocular health WNL OU RTC in 2 years for comprehensive eye exam or sooner as needed Johanna Rosales, OD 09/24/2024, 2:30 PM Manager Of Construction Source: __ None _x_ Bilingual Staff __ Qualified Staff Tray Checker __ Telephone Manager Of Construction; ID# __ Manager Of Construction brought by patient (family member, friend, HEEL SANDER RUBBER, etc) __ In person fiberglass machine operator __ Ipad Manager Of Construction; ID#: Language Spoken During Exam: Sudanese documented in this encounter Plan of Treatment Upcoming Encounters Date Type Department Care Team (Late st Contact Info) Description 10/01/2024 10:15 AM EST Office Visit [facility] MEDICINE [address] [place] [address] Marly Palma MD [address] [place] [address] 12/30/2024 10:00 AM EDT Office Visit [facility] ADULT DENTAL [address] [place] [address] LiliRitu [address] [place] [address] documented as of this encounter Visit Diagnoses Diagnosis Regular astigmatism, bilateral- Primary documented in this encounter Additional Health Concerns Assessment Noted Time PHQ-9 Depression Total Score: 0 03/06/20 11:06 AM EDT documented as of this encounter Care Teams Director Pharmaceutical Relationship Specialty Start Date End Date Marly Palma MD [address] [place] [id number] PCP - General Internal Medicine 03/17/24 documented as of this encounter
--- OUTSIDE RECORDS SUMMARY | 2024-09-30 15:05 | XMS_ITS | Encounter Summary ---
Author Organization [email or web address] Address [address] [place] [address] Care Team Providers Care Director Of Assessing Name Role Phone Marly Palma MD Primary Care Provider + Reason for Visit * Reason Onset Date Comments Results 09/02/2024 Encounter Details Date Type Department Care Team ([facility] st Contact Info) Description 09/02/2024 Telephone [facility] MEDICINE [address] [place], [place] [phone] Korin Westbrook RN Results Social History Tobacco [...] EST TC placed to pt with S manager commission Wilmer #[id number] Palma's message below. Pt informed that the CT of the abd/pelvis from May showed a left ovarian cyst. Pt confirmed that she has a f/u appt with [facility] on 09/10/2024. Pt will make sure that the DOOR FURRING INSTALLER provider is aware of these results and [...] tellher that she def needs to see DOOR FURRING INSTALLER (referral was made last year) to fu on DUB and see if ovarian cyst needs fu (sometimes they don't need any fu at all). I will fu at upcoming appt re upper abd pain documented in this encounter Plan of Treatment Upcoming Encounters Date Type Department Care Team (Late st Contact Info) Description 10/01/2024 10:15 AM EST Office Visit [facility] MEDICINE [address] [place] [address] Marly Palma MD [address] [place] [address] 12/30/2024 10:00 AM EDT Office Visit [facility] ADULT DENTAL [address] [place] [address] Lili, Ritu [address] [place] [address] documented as of this encounter Visit Diagnoses Not on filedocumented in this encounter Additional Health Concerns Assessment Noted Time PHQ-9 Depression Total Score: 0 03/06/20 11:06 AM EDT documented as of this encounter Care Teams Director Of Assessing Relationship Specialty Start Date End Date Marly Palma MD [address] [place] [id number] PCP - General Internal Medicine 03/17/24 documented as of this encounter
== END 2024-09-30 12:46 | disposition home or self-care (01) ==
LOC: HO.US 12:45
PROVIDERS: PCP Internal Medicine; Visit Provider Obstetrics & Gynecology
DX: N93.9 Abnormal uterine and vaginal bleeding, unspecified (principal)
CPT/HCPCS: 76830; 76856

== ENCOUNTER → 2024-09-30 12:47 | Outpatient (BNV) | payer MEDICAID, SELFPAY | PROVIDERS: PCP Internal Medicine; Visit Provider Radiology Diagnostic Radiology | DX: N83.202 Unspecified ovarian cyst, left side (principal) | CPT/HCPCS: 76830; 76856 ==

== ENCOUNTER 2024-11-03 13:45 | Outpatient (AMB) | payer MEDICAID, SELFPAY ==
--- NOTE | 2024-11-03 13:45 | A.OFFVIS_ITS ---
Intake Visit Reasons: US follow up Cable Systems Installer Required: Yes Cable Systems Installer Language: Telephone Surveyor Services: Cable Systems Installer Present (in person) Cable Systems Installer Name: Sofia DAVILA Information Interpreted: non-clinical & clinical Allergies No Known Allergies Allergy (Verified 11/03/24 13:47) HPI Comments Details: The patient is schedule telehealth visit for follow-up regarding abnormal uterine bleeding workup and options of treatment The following workup was done.: H&H= 12.2/35.9 TSH, hCG= neg GC and chlamydia were negative. Last Pap smear done in 01/19 was negative Pelvic ultrasound showed the following: Uterus: The uterus is anteversion flexion and measures 10 x 5 x 5 cm. Cervix appears normal. The double wall endometrial thickness is 3 mm. The uterus is smooth in contour and has normal myometrial echogenicity. No visible fibroid. Adnexa: Both ovaries are visualized. There is normal color flow to the adnexa. There is no ovarian torsion. There is no pelvic ascites or fluid collection. Right ovary measures 3 x 2 x 2 cm. Volume: 8 cc. No solid or cystic lesion. Left ovary measures 6 x 4 x 6 cm. Volume: 69 cc. There is a 4.8 cm well-defined anechoic lesion without septations or nodular component nor flow on color Doppler interrogation. [facility] Social History Household Members: Spouse and Children Housing: Apartment Alcohol intake: current Alcohol intake frequency: holidays/special occasions only Patient Tobacco Use Status: Never used Tobacco Current occupational status: unemployed Gender identity: Female Telehealth Telehealth [facility] Location of provider rendering services: practice address Location of patient: address on file Patient Identification confirmed using: Name, : Yes Telehealth method: video Patient verbally consented to treatment: Yes Patient verbally consented to billing insurance company: Yes Patient informed of any privacy concerns related to visit: Yes Minutes spent on Phone/Video with Pt.: 6 Assessment & Plan Assessment & Plan (1) Abnormal uterine bleeding (AUB): Comment: With 2 akshat implants in the left arm implant inserted in [place] Code(s): N93.9 - Abnormal uterine and vaginal bleeding, unspecified Category: Medical Plan: Discussed with the patient the workup done, recommended discontinuation of the implant and discuss different options of family planning. Instructions given the patient to schedule an appointment as soon as possible for removal of the 2 implant rods in her left arm (2) Ovarian cyst: Code(s): N83.209 - Unspecified ovarian cyst, unspecified side Category: Medical Plan: Discussed with the patient the finding on ultrasound showing a 4.8 cm left simple ovarian cyst, signs and symptoms of ovarian rupture and /or torsion were discussed with the patient. Instructions given the patient to avoid strenuous exercise and intercourse and call or go to emergency room in case of pelvic pain, nausea or vomiting. All questions answered, the patient verbalized understanding I spent a total of 20 minutes reviewing the chart, talking to the patient via video and documenting in the medical record. Coding Level of Care Code Tele Est Pt Level 3 (80999) Diagnoses Abnormal uterine bleeding (AUB) N93.9 Ovarian cyst N83.209
--- OUTSIDE RECORDS SUMMARY | 2024-11-03 16:45 | XMS_ITS | Clinical Summary ---
Author Organization [employer] Address [address] [facility] [address] [place] [address] Care Team Providers Care Director Summer Sessions Name Role Phone Marly Palma MD Primary [...] Active Problems Problem Noted Date Diagnosed Date Cyst of left ovary 10/01/2024 Assessment & Plan (10/01/2024 1:57 PM EST): Has grown in size since last year, will reach out to SALES RECRUITING COORDINATOR to follow-up closely with patient. Retained dental root 09/10/2024 Dental calculus 06/30/2024 [...] 03/09, 03/26, 04/16, 04/28 Assessment & Plan (10/01/2024 1:59 PM EST): She seems to have regular menstrual bleedings with mild vaginal spotting every other month. I told her to keep menstruation track and follow-up with SALES RECRUITING COORDINATOR, I told her that it may be related to Nexplanon and if that is an issue for her she should strongly consider other contraceptive options including oral contraceptives or patches. However I told her that I do not think the irregular bleedings are an indication to withdraw the Nexplanon but she should choose what is more convenient and comfortable for her. She will follow-up with SALES RECRUITING COORDINATOR for this. Follow-up with me for PE when this issue resolved, no later than within a year Assessment & Plan (06/04/2024 3:02 PM EST): Resolved? Sp BV rx. Patient will continue tracking menstruation and fu with me in 4m Continue Nexplanon. Assessment & Plan (05/04/2024 12:19 PM EDT): - ? Related to Nexplanon ? Uterine fibroid? - CT scan of the pelvis is pending and pt has information to call SALES RECRUITING COORDINATOR for appoitnemt - f/u in 1 month, will refer to our SALES RECRUITING COORDINATOR service to withdrawal Nexplanon if needed, may need OCTs (if no SALES RECRUITING COORDINATOR appointment is made) Assessment & Plan (03/06/2024 11:45 AM EDT): R/o or could be related to Nexplanon. Keep symptom diary. Refer to SALES RECRUITING COORDINATOR. Assessment & Plan (01/09/2024 2:56 PM EDT): RO vaginosis, STI Order abd US Will schedule appt for pelvic exam May need to change BC method, will discuss at upcoming appt. Encounters Date Type Department Care Team Description 10/27/2024 8:00 AM EDT Office Visit [facility] ADULT DENTAL [address] [place] [address] Nicole Guerrier DDS Dental caries (Primary Dx) 10/09/2024 Population Health Risk Score Community [facility] ([facility] Department [address] [id number] Provider, Population Health Generic 10/01/2024 10:15 AM EST Office Visit [facility] MEDICINE [address] [place] [address] Marly Palma MD DUB (dysfunctional uterine bleeding) (Primary Dx); Cyst of left ovary 10/01/2024 Telephone [facility] MEDICINE [address] [place] [address] Marly Palma MD Appointment Confirmation 10/01/2024 Travel 09/29/2024 Telephone [facility] MEDICINE [address] [place] [address] Marly Palma MD Chart prep 09/24/2024 1:45 PM EST Office Visit [facility] OPTOMETRY [address] [place] [address] Tarka, Johanna, OD Regular astigmatism, bilateral (Primary Dx) 09/24/2024 Travel 09/10/2024 10:30 AM EST Office Visit [facility] ADULT DENTAL [address] [place] [address] DDS Retained dental root (Primary Dx) 09/10/2024 Orders Only GENERIC EXTERNAL DATA DEPARTMENT Provider, Generic External Data 09/02/2024 Telephone [facility] MEDICINE [address] [place] [address] Korin Westbrook, RN Results 08/19/2024 11:00 AM EST Office Visit [facility] ADULT DENTAL [address] [place] [address] Ritu Pearson Periodontal disease (Primary Dx); Dental calculus 08/12/2024 11:00 AM EST Office Visit [facility] ADULT DENTAL [address] [place] [address] Ritu Pearson Periodontal disease (Primary Dx); Dental calculus; Gingival bleeding 08/07/2024 Telephone [facility] MEDICINE [address] [place] [address] Patsy Ji Care Management ([facility] Graduation) from Last 3 Months Immunizations Name Administration [...] Sign Reading Time Taken Comments Blood Pressure 128/68 10/27/2024 8:07 AM EDT Pulse 70 10/01/2024 10:04 AM EST Temperature 36.4 ??C (97.6 ??F) 10/01/2024 1 0:04 AM EST Respiratory Rate 16 10/01/2024 10:0 4 AM EST Oxygen Saturation 100% 10/01/2024 10: 04 AM EST Inhaled Oxygen Concentration - - Weight 63.9 kg (140 lb 12.8 oz) 025 10:04 AM EST Height 160 cm (5' 3 ) 10/01/2024 10:04 AM EST Body Mass Index 24.94 10/01/2024 10:04 AM EST Plan of Treatment Upcoming Encounters Date Type Department Care Team (Late st Contact Info) Description 12/01/2024 1:30 PM EDT Office Visit [facility] ADULT DENTAL [address] [place] [address] Darius-Nicole Francisco, DDS [address] [place], [place] [phone] 12/30/2024 10:00 AM EDT Office Visit [facility] ADULT DENTAL [address] [place] [address] Herbie Pearsonaris [address] [place], [place] [phone] Health Maintenance Due Date Last Done Comments HIV Screening 2000 HPV Vaccines (1 - 3-dose series) 2013 [...] 06/01/2025 06/01/2024 Dental X-Ray: Bitewings 06/25/2025 06/24/2024 Family Planning (PISQ) 10/01/2025 10/01/2024 Tobacco Screening 10/27/2025 10/27/2024 Pap Smear 03/06/2027 03/06/2024 Dental X-Ray: Full [...] PRESENTATION, DETAILED AND EXTENSIVE TREATMENT PLANNING Routine 10/27/2024 8:00 AM EDT Dental caries 5 DO RESIN-BASED COMPOSITE - 2 SURF, POSTERIOR Routine 10/27/2024 8:00 AM EDT Dental caries 4 MOD RESIN-BASED COMPOSITE - 3 SURF, POSTERIOR Routine 10/27/2024 8:00 AM EDT Dental caries 3 MO RESIN-BASED COMPOSITE - 2 SURF, POSTERIOR Routine 10/27/2024 8:00 AM EDT Dental caries US PELVIS TRANSVAGINAL Routine 1:09 PM EST HCG, TOTAL, QN Routine 09/10/2024 [...] PER QUADRANT Routine 08/19/2024 11:00 AM EST LL PERIODONTAL SCALING AND ROOT PLANING - 1 TO 3 TEETH PER QUADRANT Routine 08/12/2024 11:00 AM EST Periodontal disease Dental calculus Gingival bleeding UL PERIODONTAL SCALING AND ROOT PLANING - 1 TO 3 TEETH PER QUADRANT Routine 08/12/2024 11:00 AM [...] Recently Relevant to Health Maintenance Results * US Pelvis Transvaginal (09/30/2024 1:09 PM EST) Anatomical Region Laterality Modality Pelvis Ultrasound 09/30/2024 1:09 PM EST Narrative 09/30/2024 3:06 PM EST ? [facility] ?[address] ?[place] [address] ? Ultrasound Report ? Signed ? Patient: Cesar,Wendy ?MR#: [id number] ?? 53 ? : 2000 ?Acct:[id number] ? Age/Sex: 24 / F ?ADM Date: 03/05/25 ? Loc: HO.US ? Attending Dr: Umesh Tavares MD ? Ordering Physician: Umesh Tavares MD ?? Date of Service: 09/30/24 ?? Procedure(s): US pelvic and transvaginal ?? Accession Number(s): [id number] ? cc: Marly Palma MD; Umesh Tavares MD ? EXAMINATION: ? US PELVIS ? CLINICAL INFORMATION: ? Abnormal uterus and vaginal bleed. ? COMPARISON: ?? Correlated to CT dated June 24, 2024 reporting a 2.9 cm cyst, left ?? adnexa. ? TECHNIQUE: ?? Ultrasound of the pelvis is performed using both transabdominal and ?? transvaginal transducers along with Doppler. Transvaginal imaging is ?? performed due to inadequate visualization transabdominally. ? FINDINGS: ?? Uterus: ?? The uterus is anteversion flexion and measures 10 x 5 x 5 cm. ??Cervix ?? appears normal. ? The double wall endometrial thickness is 3 mm. ? The uterus is smooth in contour and has normal myometrial echogenicity. ?No visible fibroid. ? Adnexa: ?? Both ovaries are visualized. There is normal color flow to the adnexa. ?? There is no ovarian torsion. ??There is no pelvic ascites or fluid ?? collection. ? Right ovary measures 3 x 2 x 2 cm. Volume: 8 cc. No solid or cystic ?? lesion. ? Left ovary measures 6 x 4 x 6 cm. Volume: 69 cc. There is a 4.8 cm ?? well-defined anechoic lesion without septations or nodular component ?? nor flow on color Doppler interrogation. ? US/US pelvic and transvaginal ?? IMPRESSION: ?? 4.8 cm cyst, left ovary. Larger since prior examination. ?? No ovarian torsion. ?? Normal uterus. ?? Normal right ovary. ? Electronically signed by: ??Fausto Leos MD ??09/30/2024 03:03 PM ?? EST RP ? Dictated By: ?Fausto Rico MD ? Signed By: ?<Electronically signed by Fausto Blount MD in OV> ? 09/30/24 1503 ? DD/ 1309 ? TD/TT: 09/30/24 1351 ? Longwall Machine Operator Helper: ? Procedure Note Donotuseinterpreter, Image - 09/30/[address] [address] Ultrasound Report Signed Patient: Wendy GuerreroMR#: [id number] 53 : 2000Acct:[id number] Age/Sex: 24 / FADM Date: 09/30/24 Loc: HO.US Attending Dr: Umesh Tavares MD Ordering Physician: Umesh Tavares MD Date of Service: 09/30/24 Procedure(s): US pelvic and transvaginal Accession Number(s): [id number] cc: Marly Palma MD; Umesh Tavares MD EXAMINATION: US PELVIS CLINICAL INFORMATION: Abnormal uterus and vaginal bleed. COMPARISON: Correlated to CT dated June 24, 2024 reporting a 2.9 cm cyst, left adnexa. TECHNIQUE: Ultrasound of the pelvis is performed using both transabdominal and transvaginal transducers along with Doppler. Transvaginal imaging is performed due to inadequate visualization transabdominally. FINDINGS: Uterus: The uterus is anteversion flexion and measures 10 x 5 x 5 cm. Cervix appears normal. The double wall endometrial thickness is 3 mm. The uterus is smooth in contour and has normal myometrial echogenicity. No visible fibroid. Adnexa: Both ovaries are visualized. There is normal color flow to the adnexa. There is no ovarian torsion. There is no pelvic ascites or fluid collection. Right ovary measures 3 x 2 x 2 cm. Volume: 8 cc. No solid or cystic lesion. Left ovary measures 6 x 4 x 6 cm. Volume: 69 cc. There is a 4.8 cm well-defined anechoic lesion without septations or nodular component nor flow on color Doppler interrogation. US/US pelvic and transvaginal IMPRESSION: 4.8 cm cyst, left ovary. Larger since prior examination. No ovarian torsion. Normal uterus. Normal right ovary. Electronically signed by: Fausto Leos MD 09/30/2024 03:[address] [facility] Dictated By: Fausto Rico MD Signed By: <Electronically signed by Fausto Blount MDin OV> 09/30/24 1503 DD/ 1309 TD/TT: 09/30/24 1351 Longwall Machine Operator Helper: us [facility] External Provider IMG US PROCEDURES Edited Result - Final * TSH with Reflex to Free T4 (09/10/2024 2:45 PM EST) Pathologist [facility] TSH reflex Free T4 1.41 0.32 - 4.0 uIU/mL [facility] 09/10/2024 2:45 PM EST 09/10/2024 2:45 PM EST Generic External Data Provider LAB BLOOD ORDERAB LES Final Result [facility] [address] [place] [address] [phone] * (ABNORMAL) CBC (09/10/2024 2:45 PM EST) Pathologist [facility] White Blood Count 10.4 4.8 - 10.8 X10*3/uL [facility] Red Blood Count 4.29 4.20 - 5.50 X10*6/uL [facility] Hemoglobin 12.2 12.0 - 16.0 g/dl [facility] Hematocrit 35.9(L) 37.0 - 47.0 % [facility] Mean Corpuscular Volume 83.7 80.0 - 98.0 fL [facility] Mean Corpuscular Hemoglobin 28.4 27.0 - 33.0 pg [facility] Mean Corpuscular HGB Conc 34.0 31.0 - 35.0 g/dl [facility] Red Cell Distribution Width 12.6 11.0 - 16.0 % [facility] Platelet Count 262 160 - 400 X10*3/uL [facility] Mean Platelet Volume 10.0 9.4 - 12.3 fL [facility] NRBC Pct Auto 0.0 0.0 - 0.2 /100WBC [facility] NRBC Abs Auto 0.000 0.0 - 0.012 X10*3/uL [facility] 09/10/2024 2:45 PM EST 09/10/2024 2:45 PM EST Generic External Data Provider LAB BLOOD ORDERAB LES Final Result Performing Organization Address [facility]/ZIP Co de Phone Number [facility] [address] [place] [address] [phone] * hCG, Total, Quantitative (09/10/2024 2:45 PM EST) HCG Quantitative <2 mIU/mL [facility] Comment:Weeks post LMP Appr oximate hCG(Last Menstrual Period) Range (mIU/ml)3 - 4 weeks 9 - 1304 - 5 weeks 75 - 2,6005 - 6 weeks 850 - 20,8006 - 7 weeks 4000 - 100,2007 - 12 weeks 11,500 - 289,80556 - 16 weeks 18,300 - 137,50878 - 29 weeks (2nd trimester) 1,400 - 53,02769 - 41 weeks (3rd trimester) 940 - 60,000The Reyes B-hCG assay is used for the early detection ofpregnancy; it cannot be used to diagnose any conditionunrelated to . If a B-hCG level is not supportedby the clinical evidence, results should be confirmed by analternative method (qualitative urine hCG, for example). 09/10/2024 2:45 PM EST 09/10/2024 2:45 PM EST Generic External Data Provider LAB BLOOD ORDERAB LES Final Result Performing Organization Address [facility]/ZIP Co de Phone Number [facility] [address] [place] [address] [phone] * Chlamydia/N. Gonorrhoeae RNA, TMA, Urogenitial (09/10/2024 2:40 PM EST) CT PCR NOT DETECTED Not Detect. [facility] Comment:A not detected test result [...] psychologicalconsequences. NG PCR NOT DETECTED Not Detect. [facility] Comment:A not detected test result [...] PM EST 09/10/2024 3:01 PM EST Narrative [facility] - 09/11/2024 1:57 PM EST Vaginal us Generic External Data Provider LAB MICROBIOLOGY - GENERAL ORDERABLES Final Result [facility] [address] [place], [place] [phone] * ThinPrep?? Imaging Pap Refl HPV mRNA(if ASCUS,ASC-H,LSIL,HSIL,MARIA LUZ)Refl Genotype (03/06/2024 11:39 AM EDT) HPV nRNA E6/E7 [facility] HPV 16,18/45 [facility] SOURCE: SEE NOTE [facility] Comment:None given Report Status: [facility] Clinical Information: SEE NOTE [facility] Comment:None given LMP: SEE NOTE [facility] Comment:NONE GIVEN Prev. PAP: SEE NOTE [facility] Comment:NONE GIVEN Prev. BX: SEE NOTE [facility] Comment:NONE GIVEN Statement Of Adequacy: SEE NOTE [facility] Comment:Satisfactory for tito luation.Endocervical/transformation zone componentpresent. General Categorization: [facility] Interpretation/Result: SEE NOTE [facility] Comment:Cytology Results: Ne gative for intraepitheliallesion or malignancy. Cytology Comment SEE NOTE [facility] Comment:This Pap test has be en evaluated with computerassisted technology. Carton Making Machine Operator: SEE NOTE [facility] Comment:ZL, CT(ASCP)CT scree yuli location: [facility] [address]Lahin preparation performed at: [facility] [address] CLIA No. [id number] Review Carton Making Machine Operator: [facility] Pathologist [facility] PAP Infection [facility] See Note SEE NOTE [facility] Comment:EXPLANATORY NOTE:The Pap is a screening test for cervical cancer. It isnot a diagnostic test and is subject to false negativeand false positive results. It is most reliable when asatisfactory sample, regularly obtained, is submittedwith relevant clinical findings and history, and whenthe Pap result is evaluated along with historic andcurrent clinical information.THIS TEST WAS PERFORMED AT:[facility] [address] [id number] MERATI,MD 03/06/2024 11:3 9 AM EDT 03/06/2024 4:15 PM EDT Narrative [facility] - 03/12/2024 11:43 AM EDT SEE SCANNED RESULTS IN EMR us Marly Palma MD LAB CYTOLOGY ORDERABLES Final Result Performing Organization Address [facility] Co de Phone Number [facility] [address] [place] [address] [phone] * Hepatitis Panel, General (02/20/2024 12:35 PM EDT) Hepatitis A IgM Nonreactive Nonreactive [facility] Comment:IgM antibodies to DELGADO V not detected; does not exclude earlyacute or recovered HAV infection. ~Hepatitis B Surface Antibody REACTIVE Nonreactive [facility] Comment:REACTIVE: > 11.99 mI U/mL Hepatitis B Core Antibody Nonreactive Nonreactive [facility] Hepatitis C Antibody Nonreactive Nonreactive [facility] Comment:Antibodies to HCV no t detected; does not exclude early acuteHCV infection. Hepatitis B Surface Ag Negative Negative [facility] Blood 02/20/2024 12:3 5 PM EDT 02/20/2024 3:59 PM EDT Marly Palma MD LAB BLOOD ORDERABLES Fin al Result Performing Organization Address [facility] Co de Phone Number [facility] [address] [place] [address] [phone] from Last 3 Months or Most Recently Relevant to Health Maintenance Insurance * Guarantor: Wendy Guerrero Account Type Relation to Patient Date of Phone Billing Address Personal/Family Self [address] [place] [address] [facility] * Guarantor: Wendy Guerrero Account Type Relation to Patient Date of Phone Billing Address Dental Self [address] [facility] [place] [address] [place] Care Teams Director Summer Sessions Relationship Specialty Start Date End Date Marly Palma MD [address] [place] [address] PCP - General Internal Medicine 03/17/24
--- OUTSIDE RECORDS SUMMARY | 2024-11-03 16:45 | XMS_ITS | Encounter Summary ---
Author Organization [employer] Address [address] [place] [address] Care Team Providers Care Talking Books Library Clerk Name Role Phone Marly Palma MD Primary Care Provider + Reason for Visit * Reason Onset Date Comments Call Back Request 04/30/2024 Encounter Details Date Type Department Care Team ([facility] Contact Info) Description 04/30/2024 Telephone [facility] [address] [place] [address] Marly Palma MD [address] [place] [address] Call Back Request Social History Tobacco Use [...] Miscellaneous Notes * Telephone Encounter - Yo Christy - 04/30/2024 10:13 AM EDT Tc from pt calling in regards to CT scan of the abdomen stating she attempted to have it done at [facility] but they advised pt to contact pcp regarding insurance. Please contact pt at [phone]. (Hungarian Speaker) documented in this encounter Plan of Treatment Upcoming Encounters Date Type Department Care Team (Late st Contact Info) Description 12/01/2024 1:30 PM EDT Office Visit [facility] ADULT DENTAL [address] [place] [address] Nicole Guerrier, DDS [address] [place] [address] 12/30/2024 10:00 AM EDT Office Visit [facility] [address] [place] [address] Lili, Ritu [address] [place] [address] documented as of this encounter Visit Diagnoses Not on filedocumented in this encounter Additional Health Concerns Assessment Noted Time PHQ-9 Depression Total Score: 0 03/06/20 24 11:06 AM EDT documented as of this encounter Care Teams Talking Books Library Clerk Relationship Specialty Start Date End Date Marly Palma MD [address] [place] [phone] PCP - General Internal Medicine 03/17/24 documented as of this encounter
== END 2024-11-03 14:12 | disposition home or self-care (01) ==
LOC: HO.HWS 13:45
PROVIDERS: PCP Internal Medicine; Visit Provider Obstetrics & Gynecology
DX: N93.9 Abnormal uterine and vaginal bleeding, unspecified (principal); N83.209 Unspecified ovarian cyst, unspecified side
CPT/HCPCS: 99213

== ENCOUNTER → 2024-11-03 13:45 | Outpatient (BNVA) | payer MEDICAID, SELFPAY | PROVIDERS: PCP Internal Medicine; Visit Provider Obstetrics & Gynecology ==

== ENCOUNTER 2024-11-23 09:46 | Outpatient (AMB) | payer MEDICAID, SELFPAY ==
--- NOTE | 2024-11-23 10:00 | A.OFFVIS_ITS ---
Vital Signs 11/23/24 10:00 Height 5 ft 3 in Intake Visit Reasons: Nexplanon removal Coffee Plantation Worker Required: Yes Coffee Plantation Worker Language: Tank Builder Helper Services: Coffee Plantation Worker Present (in person) Coffee Plantation Worker Name: Sofia DAVILA Information Interpreted: non-clinical & clinical Security Risk Analyst: Security Risk Analyst Present (Sofia DAVILA) Accompanied by: Self / Same As Patient Allergies No Known Allergies Allergy (Verified 11/23/24 10:03) HPI Comments Details: Presenting for removal of the to akshat implant inserted in [place] for years ago and to discuss different options of control [facility] Social History Household Members: Spouse and Children Housing: Apartment Alcohol intake: current Alcohol intake frequency: holidays/special occasions only Patient Tobacco Use Status: Never used Tobacco Current occupational status: unemployed Gender identity: Female Review of Systems Const All systems reviewed & are unremarkable except as noted in HPI and below Reports as per HPI and Reports no additional complaints GI Reports no additional complaints Reports no additional complaints Office Procedures Contraception Insert/Removal Details Details: Counseling/Consent: After discussing with the patient the risks of the procedure including bleeding, infection, scar tissue formation, , possible injury to blood vessels or nerves, chronic arm pain, blood transfusion, and irregular unpredictable bleeding Preopdx: Requesting to rule out a implant removal Op: To rule out implants Removal Post op dx: same EBL= 10 cc Procedure: After discussing with the patient the risks of the procedure including bleeding, infection, scar tissue formation, the patient signed the consent and agreed with the plan; all questions answered. The patient was then put in the dorsal supine position with Left arm in which to rule out implants were located exposed. Then the area was scrubbed with betadine. Nexplanon was located next by palpation and the end closest to the elbow was marked with a sterile marker. 5cc 1% Xylocaine was used to anesthetize the area at the site near the tip of to rule out impulse. Next, a 3 mm incision in the longitudinal direction of the arm at the tip of the implant was made and the to rule out implants were pushed toward the incision until the tip was visible. The 2 rods implants were grasped with a curved mosquito forceps and pulled out gently. Then incision was closed with steri-strips approximating the edges and an adhesive bandage was applied. A pressure bandage was applied with sterile gauze to minimize bruising. At the end explained to the patient that she is not covered with contraception anymore and recommended for her to use another contraceptive method. Discharge instructions: Patient was instructed to call if any of the following occurs :temperature above 100.4, pain at the side of the incision, redness, discharge or gapping, arm pain or bleeding. All questions answered patient verbalized understanding . This note was generated with a voice recognition program. Some errors may have been overlooked during the review of this note. Sometimes these errors may affect the content or meaning of a given sentence. 21681 - Removal Office Meds Nexplanon 68 mg subdermal implant Performing Provider: Umesh Tavares MD Performing Location: [facility] [place] [facility] Documented (not given) by: Umesh Tavares MD on 11/23/24 10:50 Dose Route Admin Location Dispensed Lot Number Expiration Date [facility] [employer] 1 implant subdermal ea Results AMB Test Urine 2 AMB Test Urine Negative Last Edit by Sofia Sands CMA on 10:16 Results Reviewed Results Reviewed: Laboratory Last Values [facility] Negative 11/23/24 10:16 Assessment & Plan Assessment & Plan (1) Nexplanon removal: Code(s): Z30.46 - Encounter for surveillance of implantable subdermal contraceptive Category: Medical Plan: To rule out implant removed, see procedure note (2) Family planning: Code(s): Z30.09 - Encounter for other general counseling and advice on contraception Category: Social Hx Plan: Discussed with the patient the different options of control including control pills/Nuvaring, Depo Medroxy Progesterone Acetate, IUD ( levonorgestrel, Copper), sterilization. All the pros, cons, risks and benefits of each were discussed with the patient. The patient decided to go ahead with [facility] so a more detailed discussion re: control pills including mechanism of action, benefits (regular menses, less dysmenorrhea, less risk of ovarian cancer, ...), risks ( DVT, PE, Strokes, FL, increased breast ca, others). Instructions were given to use a back- up method for contraception x 1st 2 weeks, and to schedule a 3 months appointment for blood pressure check Orders: Orders AMB HCG Urine Test Today Z32.02 - Encounter for test, result negative AMB Nexplanon/Implanon Insertion/Removal - Practice Supplied Today Z30.46 - Encounter for surveillance of implantable subdermal contraceptive Medications: New desogestrel-ethinyl estradiol 0.15-0.03 mg (Apri) 1 tab PO DAILY 28 days 28 tabs 2RF Coding Level of Care Code Est Pt Level 3 (46163) Procedure Only Diagnoses Nexplanon removal Z30.46 Family planning Z30.09 CPT Codes Details - Contraception: 51509 - Removal ([id number])
--- OUTSIDE RECORDS SUMMARY | 2024-11-23 11:03 | XMS_ITS | Clinical Summary ---
Author Organization [employer] Address [address] [facility] [address] [place] [address] Care Team Providers Care Manager Action Name Role Phone Marly Palma MD Primary [...] since last year, will reach out to [facility]ORTS [facility]OUNCER to follow-up closely with patient. Retained dental [...] to keep menstruation track and follow-up with SPORTS ANNOUNCER, I told her that it may be [...] comfortable for her. She will follow-up with SPORTS ANNOUNCER for this. Follow-up with me for PE [...] pending and pt has information to call SPORTS ANNOUNCER for appoitnemt - f/u in 1 month, will refer to our SPORTS ANNOUNCER service to withdrawal Nexplanon if needed, may need OCTs (if no SPORTS ANNOUNCER appointment is made) Assessment & Plan (03/06/2024 11:45 AM EDT): R/o or could be related to Nexplanon. Keep symptom diary. Refer to SPORTS ANNOUNCER. Assessment & Plan (01/09/2024 2:56 PM EDT): RO vaginosis, STI Order abd US Will schedule appt for pelvic exam May need to change BC method, will discuss at upcoming appt. Encounters Date Type Department Care Team Description 10/27/2024 8:00 AM EDT Office Visit [facility] ADULT DENTAL [address] [place] [address] Nicole Guerrier DDS Dental caries (Primary Dx) 10/09/2024 Population Health Risk Score [facility] (C[facility]) Department [address] [phone] Provider, Population Health Generic 10/01/2024 10:15 AM EST Office Visit [facility] MEDICINE [address] [place] [address] Marly Palma MD DUB (dysfunctional uterine bleeding) (Primary Dx); Cyst of left ovary 10/01/2024 Telephone [facility] [address] [place] [address] Marly Palma MD Appointment Confirmation 10/01/2024 Travel 09/29/2024 Telephone [facility] [address] [place], [place] [phone] Marly Palma MD Chart prep 09/24/2024 1:45 PM EST Office Visit [facility] OPTOMETRY [address] [place] [address] Tarka Johanna, OD Regular astigmatism, bilateral (Primary Dx) 09/24/2024 Travel 09/10/2024 10:30 AM EST Office Visit [facility]ULT [facility] [address] [place] [address] DDS Retained dental root (Primary Dx) 09/10/2024 Orders Only GENERIC EXTERNAL DATA DEPARTMENT Provider, Generic External Data 09/02/2024 Telephone [facility] [address] [place], [place] [phone] Korin Westbrook, [place] Results from Last 3 Months Immunizations Name Administration [...] your housing situation today? I have salvatore dakota 02/25/[address] you li [...] Description 12/01/2024 1:30 PM EDT Office Visit [facility] [address] [place] [address] Nicole Guerrier, DDS [address] [place] [address] 12/30/2024 10:00 AM EDT Office Visit [facility] [address] [place] [address] Ritu Pearson [address] [place] [address] Health Maintenance Due Date Last Done Comments [...] (ELEVATION/FORCEPS REMOVAL) Routine 09/10/2024 10:30 AM EST PROPHYLAXIS - ADULT Routine 06/30/2024 1 1:00 [...] EST Narrative 09/30/2024 3:06 PM EST ? [facility] ?[address] ?[place] [address] ? Ultrasound Report ? Signed ? Patient: Wendy Guerrero ?MR#: [id number] ?? 53 ? : 2000 ?Acct:[id number] ? Age/Sex: 24 / F ?ADM Date: 09/30/24 ? Loc: HO.US ? Attending Dr: Umesh Tavares MD ? Ordering Physician: Umesh Tavares MD ?? Date of Service: 09/30/24 ?? Procedure(s): US pelvic and transvaginal ?? Accession Number(s): [id number] ? cc: Marly Palma MD; Umesh Tavares [...] DD/ 1309 ? TD/TT: 09/30/24 1351 ? Soil Specialist: ? Procedure Note Donotuseinterpreter, Image - 09/30/2024 [place] [address] Ultrasound Report Signed Patient: Wendy GuerreroMR#: [id number] 53 : 2000Acct:[id number] Age/Sex: FADM Date: 09/30/24 Loc: HO.US Attending Dr: Umesh Tavares MD Ordering Physician: Umesh Tavares MD Date of Service: 09/30/24 Procedure(s): US pelvic and transvaginal Accession Number(s): [id number] cc: Marly Palma MD; Umesh Tavares MD [...] by: Fausto Leos MD 09/30/2024 03:03 PM EST RP Dictated By: Fausto Rico MD Signed By: <Electronically signed by Fausto Blount MDin OV> 09/30/24 1503 DD/ 1309 TD/TT: 09/30/24 1351 Soil Specialist: us [facility] External Provider IMG US PROCEDURES Edited Result - Final * TSH with Reflex to Free T4 (09/10/2024 2:45 PM EST) TSH reflex Free T4 1.41 0.32 - 4.0 uIU/mL [facility] 09/10/2024 2:45 PM EST 09/10/2024 2:45 PM EST [facility] External Data Provider LAB BLOOD ORDERAB LES Final Result [facility] [address] [place] [phone] * (ABNORMAL) CBC (09/10/2024 2:45 PM EST) White Blood Count 10.4 4.8 - 10.8 X10*3/uL [facility] Red Blood Count 4.29 4.20 - 5.50 X10*6/uL [facility] Hemoglobin 12.2 12.0 - 16.0 g/dl [facility] Hematocrit 35.9(L) 37.0 - 47.0 % [facility] Mean Corpuscular Volume 83.7 80.0 - 98.0 fL [facility] Mean Corpuscular Hemoglobin 28.4 27.0 - 33.0 pg [facility] Mean Corpuscular HGB Conc 34.0 31.0 - 35.0 g/dl [facility] Red Cell Distribution Width 12.6 11.0 - 16.0 % [facility] Platelet Count 262 160 - 400 X10*3/uL [facility] Mean Platelet Volume 10.0 9.4 - 12.3 fL [facility] NRBC Pct Auto 0.0 0.0 - 0.2 /100WBC [facility] NRBC Abs Auto 0.000 0.0 - 0.012 X10*3/uL [facility] 09/10/2024 2:45 PM EST 09/10/2024 2:45 PM EST us Generic External Data Provider LAB BLOOD ORDERAB LES Final Result Performing Organization Address City/State/[facility] Co de Phone Number [facility] [address] [place] [phone] * hCG, Total, Quantitative (09/10/2024 2:45 PM EST) HCG Quantitative <2 mIU/mL [facility] Comment:Weeks post LMP Appro ximate hCG(Last Menstrual Period) Range (mIU/ml)3 - 4 weeks 9 - 1304 - 5 weeks 75 - 2,6005 - 6 weeks 850 - 20,8006 - 7 weeks 4000 - 100,2007 - 12 weeks 11,500 - 289,68758 - 16 weeks 18,300 - 137,25785 - 29 weeks (2nd trimester) 1,400 - 53,46734 - 41 weeks (3rd trimester) 940 - [...] Provider LAB BLOOD ORDERAB LES Final Result [facility] [address] [place] [phone] * Chlamydia/N. Gonorrhoeae RNA, TMA, Urogenitial (09/10/2024 2:40 PM EST) CT PCR NOT DETECTED Not Detect. [facility] Comment:A not detected test result does [...] psychologicalconsequences. NG PCR NOT DETECTED Not Detect. [facility] Comment:A not detected test result does [...] PM EST 09/10/2024 3:01 PM EST Narrative [facility] - 09/11/2024 1:57 PM EST Vaginal us Generic External Data Provider LAB MICROBIOLOGY - GENERAL ORDERABLES Final Result [facility] [address] [place] [phone] * ThinPrep?? Imaging Pap Refl HPV mRNA(if ASCUS,ASC-H,LSIL,HSIL,MARIA LUZ)Refl Genotype (03/06/2024 11:39 AM EDT) HPV nRNA E6/E7 [facility] HPV 16,18/45 [facility] SOURCE: SEE NOTE [facility] Comment:None given Report Status: [facility] Clinical Information: SEE NOTE [facility] Comment:None given LMP: SEE NOTE [facility] Comment:NONE GIVEN Prev. PAP: SEE NOTE [facility] Comment:NONE GIVEN Prev. BX: SEE NOTE [facility] Comment:NONE GIVEN Statement Of Adequacy: SEE NOTE [facility] Comment:Satisfactory for tito luation.Endocervical/transformation zone componentpresent. General Categorization: [facility] Interpretation/Result: SEE NOTE [facility] Comment:Cytology Results: Ne gative for intraepitheliallesion or malignancy. Cytology Comment SEE NOTE [facility] Comment:This Pap test has be en evaluated with computerassisted technology. Process Inspector: SEE NOTE [facility] Comment:ASH CT(ASCP)CT jeanee yuli location: [facility] [address]Cnhqd preparation performed at: [facility] [address] CLIA No. [id number] Review Process Inspector: [facility] Pathologist [facility] PAP Infection [facility] See Note SEE NOTE [facility] Comment:EXPLANATORY NOTE:The Pap is a screening test for cervical cancer. It isnot a diagnostic test and is subject to false negativeand false positive results. It is most reliable when asatisfactory sample, regularly obtained, is submittedwith relevant clinical findings and history, and whenthe Pap result is evaluated along with historic andcurrent clinical information.THIS TEST WAS PERFORMED AT:[facility] [address] [id number] MERATI,MD 03/06/2024 11:3 9 AM EDT 03/06/2024 4:15 PM EDT Narrative [facility] - 03/12/2024 11:43 AM EDT SEE SCANNED RESULTS IN EMR us Marly Palma MD LAB CYTOLOGY ORDERABLES Final Result Performing Organization Address [facility] Co de Phone Number [facility] [address] [place] [phone] * Hepatitis Panel, General (02/20/2024 12:35 PM EDT) Hepatitis A IgM Nonreactive Nonreactive [facility] Comment:IgM antibodies to DELGADO V not detected; does not exclude earlyacute or recovered HAV infection. ~Hepatitis B Surface Antibody REACTIVE Nonreactive [facility] Comment:REACTIVE: > 11.99 mI U/mL Hepatitis B Core Antibody Nonreactive Nonreactive [facility] Hepatitis C Antibody Nonreactive Nonreactive [facility] Comment:Antibodies to HCV no t detected; does not exclude early acuteHCV infection. Hepatitis B Surface Ag Negative Negative [facility] Blood 02/20/2024 12:3 5 PM EDT 02/20/2024 3:59 PM EDT us Marly Palma MD LAB BLOOD ORDERABLES Fin al Result Performing Organization Address [facility]/ZIP Co de Phone Number [facility] [address] [place] [phone] from Last 3 Months or Most Recently Relevant to Health Maintenance Insurance * Guarantor: Wendy Guerrero Account Type Relation to Patient Date of Phone Billing Address Personal/Family Self [address] [place] [address] [place] * Guarantor: Wendy Guerrero Account Type Relation to Patient Date of Phone Billing Address Dental Self 2000 [address] [place] [address] [facility] Care Teams Manager Action Relationship Specialty Start Date End Date Marly Palma MD [address] [place] [phone] PCP - General Internal Medicine 03/17/24
--- OUTSIDE RECORDS SUMMARY | 2024-11-23 11:03 | XMS_ITS | Encounter Summary ---
Author Organization [employer] Address [address] [facility] 7t [place] [address] Care Team Providers Care Plexiglas Former Name Role Phone Marly Palma MD Primary Care Provider + Reason for Visit * Reason Onset Date Comments Call Back Request 04/30/2024 Encounter Details Date Type Department Care Team ([facility] Contact Info) Description 04/30/[address] [facility] MED[facility] [address] [place], [place] [phone] Marly Palma MD [address] [place] [address] Call Back Request Social History Tobacco Use [...] she attempted to have it done at [facility] but they advised pt to contact pcp regarding insurance. Please contact pt at [phone]. (Indonesian Speaker) documented in this encounter Plan of Treatment Upcoming Encounters Date Type Department Care Team (Late st Contact Info) Description 12/01/2024 1:30 PM EDT Office Visit [facility] ADULT DENTAL [address] [place] [address] Nicole Guerrier, DDS [address] [place] [address] 12/30/2024 10:00 AM EDT Office Visit [facility] ADULT D[facility] [address] [place] [address] Lili, Ritu [address] [place] [address] documented as of this encounter Visit Diagnoses Not on filedocumented in this encounter Additional Health Concerns Assessment Noted Time PHQ-9 Depression Total Score: 0 03/06/20 24 11:06 AM EDT documented as of this encounter Care Teams Plexiglas Former Relationship Specialty Start Date End Date Marly Palma MD [address] [place] [phone] PCP - General Internal Medicine 03/17/24 documented as of this encounter
== END 2024-11-23 10:51 | disposition home or self-care (01) ==
LOC: HO.HWS 09:46
PROVIDERS: PCP Internal Medicine; Visit Provider Obstetrics & Gynecology
DX: Z30.09 Encounter for other general counseling and advice on contraception (principal); Z30.46 Encounter for surveillance of implantable subdermal contraceptive; Z32.02 Encounter for pregnancy test, result negative
CPT/HCPCS: 11982; 99213

== ENCOUNTER → 2024-11-23 09:46 | Outpatient (BNVA) | payer MEDICAID, SELFPAY | PROVIDERS: PCP Internal Medicine; Visit Provider Obstetrics & Gynecology | DX: Z30.46 Encounter for surveillance of implantable subdermal contraceptive (principal); Z30.09 Encounter for other general counseling and advice on contraception | CPT/HCPCS: 11982; 81025; 99212 ==

== ENCOUNTER 2025-02-23 10:26 | Outpatient (AMB) | payer MEDICAID, SELFPAY ==
[2025-02-23 10:36] VITALS: BP 118/68
--- NOTE | 2025-02-23 10:36 | MHC.OFFVIS ---
Vital Signs 02/23/25 10:36 BP 118/68 Intake Visit Reasons: control follow up Allergies No Known Allergies Allergy (Verified 11/23/24 10:03) HPI Comments Details: Presenting for control pill follow-up. The patient is taking the pill every day without any masses, her menstrual cycles are regular and light non crampy and is requesting a prescription refill [facility] Social History Household Members: Spouse and Children Housing: Apartment Alcohol intake: current Alcohol intake frequency: holidays/special occasions only Patient Tobacco Use Status: Never used Tobacco Current occupational status: unemployed Gender identity: Female Review of Systems Const All systems reviewed & are unremarkable except as noted in HPI and below Reports as per HPI and Reports no additional complaints GI Reports no additional complaints Reports no additional complaints Physical Exam Vital Signs: Last Vital Signs BP 118/68 02/23/25 10:36 Assessment & Plan Assessment & Plan (1) Contraceptive management: Code(s): Z30.9 - Encounter for contraceptive management, unspecified Category: Medical Plan: Prescription refill sent to the pt's pharmacy. All questions answered, the patient verbalized understanding Medications: Refilled desogestrel-ethinyl estradiol 0.15-0.03 mg (Apri) 1 tab PO DAILY 28 tabs 12RF 28 days Coding Level of Care Code Est Pt Level 3 (62990) Diagnoses Contraceptive management Z30.9
--- OUTSIDE RECORDS SUMMARY | 2025-02-23 11:23 | XMS_ITS | Encounter Summary ---
Author Organization [employer] Address [address] [facility] [address] [place] [address] Care Team Providers Care Secy Name Role Phone Marly Palma MD Primary Care Provider + Reason for Visit * Reason Onset Date Comments Call Back Request 04/30/2024 Encounter Details Date Type Department Care Team ([facility] Contact Info) Description 04/30/2024 Telephone [facility] [address] [place] [address] Marly Palma MD [address] [place] [address] Call Back Request Social History Tobacco Use [...] encounter Miscellaneous Notes * Telephone Encounter - Yosindhu Christy - 04/30/2024 10:13 AM EDT Tc from pt calling in regards to CT scan of the abdomen stating she attempted to have it done at [facility] but they advised pt to contact pcp regarding insurance. Please contact pt at [phone]. (Vietnamese Speaker) documented in this encounter Plan of Treatment Upcoming Encounters Date Type Department Care Team (Late st Contact Info) Description 07/14/2025 1:00 PM EST Office Visit [facility] ADULT DENTAL [address] [place] [address] Lili, Ritu [address] [place] [address] documented as of this encounter Visit Diagnoses Not on filedocumented in this encounter Additional Health Concerns Assessment Noted Time PHQ-9 Depression Total Score: 0 03/06/20 11:06 AM EDT documented as of this encounter Care Teams Secy Relationship Specialty Start Date End Date Marly Palma MD [address] [place] [address] PCP - General Internal Medicine 03/17/24 documented as of this encounter
== END 2025-02-23 10:58 | disposition home or self-care (01) ==
LOC: HO.HWS 10:26
PROVIDERS: PCP Internal Medicine; Visit Provider Obstetrics & Gynecology
DX: Z30.9 Encounter for contraceptive management, unspecified (principal)
CPT/HCPCS: 99213

== ENCOUNTER → 2025-02-23 10:26 | Outpatient (BNVA) | payer MEDICAID, SELFPAY | PROVIDERS: PCP Internal Medicine; Visit Provider Obstetrics & Gynecology | DX: Z30.41 Encounter for surveillance of contraceptive pills (principal) | CPT/HCPCS: 99212 ==

== ENCOUNTER 2025-04-21 11:51 | Outpatient (REF) | payer MEDICAID, SELFPAY ==
--- NOTE | ~2025-04-21 | XR_ITS ---
EXAMINATION: XR KNEE, LEFT CLINICAL INFORMATION: left knee arthralgia x 10 + years COMPARISON: None available. TECHNIQUE: Three views of the left knee. FINDINGS: Joint spaces are preserved. Intercondylar tubercles are minimally peaked. Minute osteophyte is present involving the lateral patella. There is a small amount of joint fluid. XR/XR knee LT 3V IMPRESSION: Essentially unremarkable knee with very minimal degenerative changes and visible joint fluid without a gross joint effusion. Electronically signed by: Manny Alfonso MD 04/21/2025 02:10 PM EDT
--- OUTSIDE RECORDS SUMMARY | 2025-04-21 11:00 | XMS_ITS | Encounter Summary ---
Author Organization [employer] Address [address] [facility] 7t [place] [address] Care Team Providers Care Wire Rigger Name Role Phone Marly Palma MD Primary Care Provider + Reason for Visit * Reason Comments Rash CO rash. Pt states h er rash has gotten worse and the cream that was prescribed subsided the a little but never fully went away. Pt states when she finished the cream it came back and spread to her face, arms and back Encounter Details Date Type Department Care Team (Late st Contact Info) Description 04/21/2025 11:00 AM EDT Office Visit [facility] [address] [place] [address] Marly Palma MD [address] [place] [address] Arthralgia of left knee (Primary Dx); Encounter for immunization Social History Tobacco Use Types Packs/Day Years Used Date Smoking Tobacco: Never Smokeless Tobacco: Never Alcohol Use Standard Drinks/Week Comments Never 0 (1 standard drink = 0.6 oz pur e alcohol) Depression Answer Date Recorded Patient Health Questionnaire-9 Score 2 04/21/2025 Patient Health Questionnaire-9 Score 2 04/21/2025 Last PHQ-9: Questionnaire Data Not on file 0 04/21/2025 Housing Stability Answer Date Recorded What is [...] the past 12 months, has t he [employer], [employer], oil or water company threatened to shut off services in your home? No 02/25/2024 Depression Answer Date Recorded Patient Health Questionnaire-2 Score 1 04/21/2025 Internet Access Answer Date Recorded Internet Access [...] Sign Reading Time Taken Comments Blood Pressure 102/58 04/21/2025 10:46 AM EDT Pulse 72 04/21/2025 10:46 AM EDT Temperature 36.4 C (97.5 F) 04/21/2025 10:46 AM EDT Respiratory Rate 20 04/21/2025 10:46 AM EDT Oxygen Saturation - - Inhaled Oxygen Concentration - - Weight 61.7 kg (136 lb 2 oz) 04/21/2025 10:46 AM EDT Height 161.5 cm (5' 3.58 ) 04/21/2025 10:46 AM E DT Body Mass Index 23.67 04/21/2025 10:46 AM EDT documented in this encounter Functional Status * Over the past 2 weeks, how often have you been bothered by any of the following problems? Question Answer Date of Assessment Author Patient Health Questionnaire -2 Score 1 04/21/2025 11:12 AM EDT Haily Hathaway [place] * Little interest or pleasure in doing things Answer Date of Assessment Author Several days 04/21/2025 11:12 AM EDT Haily Hathaway [place] * Feeling down, depressed, or hopeless Answer Date of Assessment Author Not at all 04/21/2025 11:12 AM Haily Cortez [place] * Trouble falling or staying asleep, or sleeping too much Answer Date of Assessment Author Several days 04/21/2025 11:12 AM Haily Cortez [place] * Feeling tired or having little energy Answer Date of Assessment Author Not at all 04/21/2025 11:12 AM Haily Cortez [place] * Poor appetite or overeating Answer Date of Assessment Author Not at all 04/21/2025 11:12 AM Haily Cortez [place] * Feeling bad about yourself - or that you are a failure or have let yourself or your family down Answer Date of Assessment Author Not at all 04/21/2025 11:12 AM Haily Cortez [place] * Trouble concentrating on things, such as reading the newspaper or watching television Answer Date of Assessment Author Not at all 04/21/2025 11:12 AM Haily Cortez [place] * Moving or speaking so slowly that other people could have noticed? Or the opposite - being so fidgety or restless that you have been moving around a lot more than usual. Answer Date of Assessment Author Not at all 04/21/2025 11:12 AM Haily Cortez MA * Thoughts that you would be better off or hurting yourself in some way Answer Date of Assessment Author Not at all 04/21/2025 11:12 AM Haily Cortez MA * Patient Health Questionnaire-9 Score Answer Date of Assessment Author 2 04/21/2025 11:12 AM Haily Cortez MA * How difficult have these problems made it for you to do your work, take care of things at home, or get along with other people? Answer Date of Assessment Author Not difficult at all 04/21/2025 11:12 AM Haily Argueta MA * Over the last 2 weeks, how often have you been bothered by any of the following problems? Question Answer Date of Assessment Author Feeling nervous, anxious, or on edge 0 04/21/2025 11:13 AM Haily Cortez MA Not being able to stop or co ntrol worrying 0 04/21/2025 11:13 AM EDT Haily Hathaway MA Worrying too much about diff erent things 0 04/21/2025 11:13 AM EDT Haily Hathaway MA Trouble relaxing 0 04/21/2025 11:13 AM EDT Haily Hathaway MA Being so restless that it is hard to sit still 0 04/21/2025 11:13 AM EDT Haily Hathaway MA Becoming easily annoyed or irritable 0 04/21/2025 11:13 AM EDT Haily Hathaway MA Feeling afraid as if somethi ng awful might happen 0 04/21/2025 11:13 AM EDT Haily Hathaway MA FLORES-7 Total Score 0 04/21/2025 11:13 AM EDT Haily Hathaway MA documented as of this encounter Plan of Treatment Upcoming Encounters Date Type Department Care Team (Late st Contact Info) Description 07/01/2025 10:30 AM EST Office Visit [facility] [address] [place] [phone] Marly Palma MD [address] [place] [address] 07/14/2025 12:45 PM EST Office Visit [facility] [address] [place] [address] Ritu Pearson [address] [place] [address] documented as of this encounter Procedures Procedure Name Priority Date/Time Associated Diagnosis Comments XR KNEE 3 VIEWS LEFT Routine 04/21/2025 2:00 PM EDT Arthralgia of left knee documented in this encounter Results * XR Knee 3 Views Left (04/21/2025 2:00 PM EDT) Anatomical Region Laterality Modality Lower Extremities, Knee Left [facility] 04/21/2025 2:00 PM EDT Narrative 04/21/2025 2:12 PM EDT [facility] [address] [place] [address] XRay Report Signed Patient: Wendy Guerrero MR#: [id number] 53 : 2000 Acct:[id number] Age/Sex: 24 / F ADM Date: 04/21/25 Loc: [facility] Attending Dr: Marly Palma MD Ordering Physician: Marly Palma MD Date of Service: 04/21/25 Procedure(s): XR knee LT 3V Accession Number(s): [id number] cc: Marly Palma MD Reason for Exam: left knee arthralgia x 10 + years EXAMINATION: XR KNEE, LEFT CLINICAL INFORMATION: left knee arthralgia x 10 + years COMPARISON: None available. TECHNIQUE: Three views of the left knee. FINDINGS: Joint spaces are preserved. Intercondylar tubercles are minimally peaked. Minute osteophyte is present involving the lateral patella. There is a small amount of joint fluid. XR/XR knee LT 3V IMPRESSION: Essentially unremarkable knee with very minimal degenerative changes and visible joint fluid without a gross joint effusion. Electronically signed by: Manny Alfonso MD 04/21/2025 02:10 PM EDT Dictated By: Manny Alfonso MD Signed By: <Electronically signed by Manny Alfonso MD in OV> 04/21/25 1410 DD/ 1400 TD/TT: 04/21/25 1405 Senior Java Ui Developer: Procedure Note Donotuseinterpreter, Image - 04/21/2025 [place] [address] XRay Report Signed Patient: Wendy Guerrero#: [id number] 53 : 2000Acct:[id number] Age/Sex: 24 / FADM Date: 04/21/25 Loc: [facility] Attending Dr: Marly Palma MD Ordering Physician: Marly Palma MD Date of Service: 04/21/25 Procedure(s): XR knee LT 3V Accession Number(s): [id number] cc: Marly Palma MD Reason for Exam: left knee arthralgia x 10 + years EXAMINATION: XR KNEE, LEFT CLINICAL INFORMATION: left knee arthralgia x 10 + years COMPARISON: None available. TECHNIQUE: Three views of the left knee. FINDINGS: Joint spaces are preserved. Intercondylar tubercles are minimally peaked. Minute osteophyte is present involving the lateral patella. There is a small amount of joint fluid. XR/XR knee LT 3V IMPRESSION: Essentially unremarkable knee with very minimal degenerative changes and visible joint fluid without a gross joint effusion. Electronically signed by: Manny Alfonso MD 04/21/2025 02:10 PM EDT RP Dictated By: aMnny Alfonso MD Signed By: <Electronically signed by Manny Alfonso MD in OV> 04/21/25 1410 DD/ 1400 TD/TT: 04/21/25 1405 Senior Java Ui Developer: Marly Palma MD IMG XR PROCEDURES Final Result documented in this encounter Visit Diagnoses Diagnosis Arthralgia of left knee- Primary Encounter for immunization documented in this encounter Additional Health Concerns Assessment Noted Time PHQ-9 Depression Total Score: 2 04/21/20 25 11:12 AM EDT documented as of this encounter Care Teams Wire Rigger Relationship Specialty Start Date End Date Marly Palma MD [address] [place] [phone] PCP - General Internal Medicine 03/17/24 documented as of this encounter
--- OUTSIDE RECORDS SUMMARY | 2025-04-21 14:51 | XMS_ITS | Encounter Summary ---
Author Organization [employer] Address [address] [facility] 7t [place] [address] Care Team Providers Care Nozzle Tender Name Role Phone Marly Palma MD Primary Care Provider + Reason for Visit * Reason Onset Date Comments CHART PREP 04/20/2025 Encounter Details Date Type Department Care Team ([facility] Contact Info) Description 04/20/2025 Telephone [facility] [address] [place] [address] Marly Palma MD [address] [place] [address] CHART PREP Social History Tobacco Use Types Packs/Day Years [...] encounter Miscellaneous Notes * Telephone Encounter - Larisa Xiao MA - 04/20/2025 3:18 PM EDT Chart Prep Labs: not applicable Images: not applicable Referrals: not applicable Vaccines due: Covid, Flu, Tdap, Hep B, and Hep A Screenings: LMP Overdue care gaps: PHQ-9, FLORES-7, Oral health screening, and Disability screen documented in this encounter Plan of Treatment Upcoming Encounters Date Type Department Care Team (Late st Contact Info) Description 07/01/2025 10:30 AM EST Office Visit [facility] [address] [place] [address] Marly Palma MD [address] [place] [address] 07/14/2025 12:45 PM EST Office Visit [facility] ADULT D[facility] [address] [place] [address] Ritu Pearson [address] [place] [address] documented as of this encounter Visit Diagnoses Not on filedocumented in this encounter Additional Health Concerns Assessment Noted Time PHQ-9 Depression Total Score: 0 03/06/20 11:06 AM EDT documented as of this encounter Care Teams Nozzle Tender Relationship Specialty Start Date End Date Marly Palma MD [address] [place] [phone] PCP - General Internal Medicine 03/17/24 documented as of this encounter
--- OUTSIDE RECORDS SUMMARY | 2025-04-21 14:51 | XMS_ITS | Encounter Summary ---
Author Organization [employer] Address [address] [facility] 7t [place] [address] Care Team Providers Care Academic Coach Name Role Phone Marly Palma MD Primary Care Provider + Reason for Visit * Reason Onset Date Comments Call Back Request 04/30/2024 Encounter Details Date Type Department Care Team ([facility] Contact Info) Description 04/30/2024 Telephone [facility] [address] [place] [address] Marly Palma MD [address] [place] [address] Call Back Request Social History Tobacco Use [...] she attempted to have it done at [facility] but they advised pt to contact pcp regarding insurance. Please contact pt at [phone]. (Irish Speaker) documented in this encounter Plan of Treatment Upcoming Encounters Date Type Department Care Team (Late st Contact Info) Description 07/01/2025 10:30 AM EST Office Visit [facility] [address] [place] [address] Marly Palma MD [address] [place] [address] 07/14/2025 12:45 PM EST Office Visit [facility] ADULT DENT[facility] [address] [place] [address] Ritu Pearson [address] [place] [address] documented as of this encounter Visit Diagnoses Not on filedocumented in this encounter Additional Health Concerns Assessment Noted Time PHQ-9 Depression Total Score: 0 03/06/20 24 11:06 AM EDT documented as of this encounter Care Teams Academic Coach Relationship Specialty Start Date End Date Marly Palma MD [address] [place] [phone] PCP - General Internal Medicine 03/17/24 documented as of this encounter
--- OUTSIDE RECORDS SUMMARY | 2025-04-21 14:51 | XMS_ITS | Clinical Summary ---
Author Organization [employer] Address [address] [place] [address] 7[address] [place] [address] Care Team Providers Care Campaign Director Name Role Phone Marly Palma MD Primary Care Provider + Allergies No known active allergies Medications famotidine (Pepcid) 40 MG tablet Take 1 tablet (40 mg) by mouth Once per day. 30 tablet 4 06/01/20 25 Active Additional Information Patient not taking.Reported on 04/21/2025 Sodium Fluoride (PreviDent 5000 Plus) 1.1 % cream Apply 1 mg to teeth 3 times daily. 1 g 3 4 Active Additional Information Patient not taking.Reason: Not available, Reported on 04/21/2025 Juleber 0.15-30 MG-MCG tablet Take 1 tablet by mouth Once per day. 5 Active Active Problems Problem Noted Date Diagnosed Date Cyst of left ovary 10/01/2024 Assessment & Plan (10/01/2024 1:57 PM EST): Has grown in size since last year, will reach out to ELECTROCARDIOGRAPH OPERATOR to follow-up closely with patient. Retained dental [...] to keep menstruation track and follow-up with ELECTROCARDIOGRAPH OPERATOR, I told her that it may be [...] comfortable for her. She will follow-up with ELECTROCARDIOGRAPH OPERATOR for this. Follow-up with me for PE [...] pending and pt has information to call ELECTROCARDIOGRAPH OPERATOR for appoitnemt - f/u in 1 month, will refer to our ELECTROCARDIOGRAPH OPERATOR service to withdrawal Nexplanon if needed, may need OCTs (if no ELECTROCARDIOGRAPH OPERATOR appointment is made) Assessment & Plan (03/06/2024 11:45 AM EDT): R/o or could be related to Nexplanon. Keep symptom diary. Refer to ELECTROCARDIOGRAPH OPERATOR. Assessment & Plan (01/09/2024 2:56 PM EDT): RO vaginosis, STI Order abd US Will schedule appt for pelvic exam May need to change BC method, will discuss at upcoming appt. Encounters Date Type Department Care Team Description 04/21/2025 11:00 AM EDT Office Visit [facility] [address] [place] [phone] Marly Palma MD Arthralgia of left knee (Primary Dx); Encounter for immunization 04/21/2025 Travel 04/20/2025 Telephone [facility] [address] [place] [address] Marly Palma MD CHART PREP 03/31/2025 Telephone [facility] [address] [place] [address] Marly Palma MD Telephone Call from Last 3 Months Immunizations Immunization Administration Dates Next Due Influenza, seasonal, injectable, preservative fr ee 05/04/2024 Tdap 04/21/2025 Social History Tobacco Use Types Packs/Day Years [...] Q2 Not on file 03/30/2024 Comments No Intention Date Recorded No desire to become (finding) 0 10/01/2024 Sex and Gender Information Value Date Recorded [...] 20 04/21/2025 10:46 AM EDT Oxygen Saturation 100% 10/01/2024 10:04 AM EST Inhaled Oxygen Concentration - - Weight 61.7 kg (136 lb 2 oz) 04/21/2025 10:46 AM EDT Height 161.5 cm (5' 3.58 ) 04/21/2025 10:46 AM E DT Body Mass Index 23.67 04/21/2025 10:46 AM EDT Plan of Treatment Upcoming Encounters Date Type Department Care Team (Late st Contact Info) Description 07/01/2025 10:30 AM EST Office Visit [facility] [address] [place] [address] Marly Palma MD [address] [place] [address] 07/14/2025 12:45 PM EST Office Visit [facility]ULT [facility] [address] [place] [address] Ritu Pearson [address] [place] [address] Health Maintenance Due Date Last Done Comments HIV Screening 2000 HPV Vaccines (1 - 3-dose series) 2013 Hepatitis A Vaccines (1 of 2 - Risk 2-dose series) 2017 Hepatitis B Vaccines (1 of 3 - 19+ 3-dose series) 2017 Dental Oral Exam 12/23/2024 06/24/2024 COVID-19 Vaccine (1 - 2023-2 5 season) 2025 Influenza Vaccine (#1) 2025 05/04/2024 SDOH Screening 05/12/2025 05/12/2024 Alcohol/Substance Use Screening 06/01/2025 06/01/2024 Dental X-Ray: Bitewings 06/25/2025 06/24/2024 Dental Prophylaxis 07/02/2025 12/30/2024, 06/30/2024 Family Planning (PISQ) 10/01/2025 10/01/2024 Depression Screening 04/21/2026 04/21/2025, 04/21/2025 Disability Screening 04/21/2026 04/21/2025 Tobacco Screening 04/21/2026 04/21/2025 Pap Smear 03/06/2027 03/06/2024 Dental X-Ray: Full Mouth 06/25/2027 06/24/2024 DTaP/Tdap/Td Vaccines (2 - T d or Tdap) 04/21/2035 04/21/2025 Zoster Vaccines (1 of 2) 2048 RSV Patients and Patients Aged 60 years or older (1 - 1-dose 75+ series) 2073 Hepatitis C Screening Completed 02/20/2024 HIB Vaccines Aged Out No longer eligi ble based on patient's age to complete this topic IPV Vaccines Aged Out No longer eligi ble based on patient's age to complete this topic Meningococcal B Vaccine Aged Out No l onger eligible based on patient's age to complete this topic Meningococcal Vaccine Aged Out No elisa logan eligible based on patient's age to complete this topic Pneumococcal Vaccine: Pediatrics (0 to 5 Years) and At-Risk Patients (6 to 49) Years Aged Out No longer eligible b ased [...] 2:00 PM EDT Arthralgia of left knee PROPHYLAXIS - ADULT Routine 12/30/2024 1 0:00 AM EDT Dental calculus Gingival bleeding INTRAORAL - COMPLETE SERIES OF RADIOGRAPHIC IMAGES Routine 06/24/2024 8:00 AM EST Encounter for dental examination Dental calculus Dental caries COMPREHENSIVE ORAL EVALUATION - NEW OR ESTABLISHED PATIENT Routine 06/24/2024 8:00 AM EST Encounter for dental examination Dental calculus Dental caries THINPREP IMAGING PAP REFL HPV MRNA(IF ASCUS,ASC-H,LSIL) Routine 03/06/2024 11:39 AM EDT HEPATITIS PANEL, GENERAL Routine 02/20/2024 12:35 PM EDT Generalized abdominal pain from Last 3 Months or Most Recently Relevant to Health Maintenance Results * XR Knee 3 Views Left (04/21/2025 2:00 PM EDT) Anatomical Region Laterality Modality Lower Extremities, Knee Left Radiogra phic Imaging 04/21/2025 2:00 PM EDT Narrative 04/21/2025 2:12 PM EDT [address] [address] XRay Report Signed Patient: Wendy Guerrero MR#: [id number] 53 : 2000 Acct:[id number] Age/Sex: 24 / F ADM Date: 04/21/25 [facility] Dr: Marly Palma MD Ordering Physician: Marly Palma MD Date of Service: 04/21/25 Procedure(s): XR knee LT 3V Accession Number(s): [id number] cc: Marly Palma MD Reason for Exam: [...] 04/21/25 1410 DD/ 1400 TD/TT: 04/21/25 1405 Recruiter Specialist: Procedure Note Donotuseinterpreter, Image - 04/21/2025 [facility] [address] [place] [address] XRay Report Signed Patient: Wendy GuerreroMR#: [id number] 53 : 2000Acct:[id number] Age/Sex: 24 / FADM Date: 04/21/25 [facility]: Marly Palma MD Ordering Physician: Marly Palma MD Date of Service: 04/21/25 Procedure(s): XR knee LT 3V Accession Number(s): [id number] cc: Marly Palma MD Reason for Exam: [...] 04/21/25 1410 DD/ 1400 TD/TT: 04/21/25 1405 Recruiter Specialist: us Marly Palma MD IMG XR PROCEDURES Final Result * ThinPrep?? Imaging Pap Refl HPV mRNA(if ASCUS,ASC-H,LSIL,HSIL,MARIA LUZ)Refl Genotype (03/06/2024 11:39 AM EDT) HPV nRNA E6/E7 [facility] HPV 16,18/45 [facility] SOURCE: SEE NOTE [facility] Comment:None given Report Status: [facility] Clinical Information: SEE NOTE [facility] Comment:None given LMP: SEE NOTE [facility] Comment:NONE GIVEN Prev. PAP: SEE NOTE [facility] Comment:NONE GIVEN Prev. BX: SEE NOTE [facility] Comment:NONE GIVEN Statement Of Adequacy: SEE NOTE [facility] Comment:Satisfactory for tito luation.Endocervical/transformation zone componentpresent. General Categorization: [facility] Interpretation/Result: SEE NOTE [facility] Comment:Cytology Results: Ne gative for intraepitheliallesion or malignancy. Cytology Comment SEE NOTE [facility] Comment:This Pap test has be en evaluated with computerassisted technology. Watch Adjuster: SEE NOTE [facility] Comment:ZL, CT(ASCP)CT scree yuli location: Where [address] [address]Pmteo preparation performed at: [facility] [address] CLIA No. [id number] Review Watch Adjuster: [facility] Pathologist [facility] PAP Infection [facility] See Note SEE NOTE [facility] Comment:EXPLANATORY NOTE:The Pap is a screening test for cervical cancer. It isnot a diagnostic test and is subject to false negativeand false positive results. It is most reliable when asatisfactory sample, regularly obtained, is submittedwith relevant clinical findings and history, and whenthe Pap result is evaluated along with historic andcurrent clinical information.THIS TEST WAS PERFORMED AT:[facility] [address] [id number] MERATI,MD 03/06/2024 11:3 9 AM EDT 03/06/2024 4:15 PM EDT Narrative [facility] - 03/12/2024 11:43 AM EDT SEE SCANNED RESULTS IN EMR Marly Palma MD LAB CYTOLOGY ORDERABLES Final Result Performing Organization Address City/State/[facility] Co de Phone Number [facility] [address] [place] [address] [phone] * Hepatitis Panel, General (02/20/2024 12:35 PM EDT) Hepatitis A IgM Nonreactive Nonreactive [facility] Comment:IgM antibodies to DELGADO V not detected; does not exclude earlyacute or recovered HAV infection. ~Hepatitis B Surface Antibody REACTIVE Nonreactive [facility] Comment:REACTIVE: > 11.99 mI U/mL Hepatitis B Core Antibody Nonreactive Nonreactive [facility] Hepatitis C Antibody Nonreactive Nonreactive [facility] Comment:Antibodies to HCV no t detected; does not exclude early acuteHCV infection. Hepatitis B Surface Ag Negative Negative [facility] Blood 02/20/2024 12:3 5 PM EDT 02/20/2024 3:59 PM EDT Marly Palma MD LAB BLOOD ORDERABLES Fin al Result Performing Organization Address [facility] Co de Phone Number [facility] [address] [place] [address] [phone] from Last 3 Months or Most Recently Relevant to Health Maintenance Insurance * Guarantor: Wendy Guerrero Account Type Relation to Patient Date of Phone Billing Address Personal/Family Self [address] [place] [address] [facility] C[facility] * Guarantor: Wendy Guerrero Account Type Relation to Patient Date of Phone Billing Address Dental Self [address] [place] [address] [facility] [employer] Care Teams Campaign Director Relationship Specialty Start Date End Date Marly Palma MD [address] [place] [phone] PCP - General Internal Medicine 03/17/24
--- OUTSIDE RECORDS SUMMARY | 2025-04-21 14:51 | XMS_ITS | Encounter Summary ---
Author Organization [employer] Address [address] [place] [address] Care Team Providers Care Laboratory Tester Name Role Phone Marly Palma MD Primary Care Provider + Encounter Details Date Type Department Care Team (Latest Contact Info) Description 04/21/2025 Travel Social History Tobacco Use Types Packs/Day [...] AM EDT documented as of this encounter Functional Status * Over the [...] Author Not at all 04/21/2025 11:12 AM EDT Haily Hathaway [place] * Trouble falling or staying asleep, or sleeping too much Answer Date of Assessment Author Several days 04/21/2025 11:12 AM EDT Haily Hathaway [place] * Feeling tired or having little energy Answer Date of Assessment Author Not at all 04/21/2025 11:12 AM EDT Haily Hathaway [place] * Poor appetite or overeating Answer Date of Assessment Author Not at all 04/21/2025 11:12 AM EDT Haily Hathaway [place] * Feeling bad about yourself - or that you are a failure or have let yourself or your family down Answer Date of Assessment Author Not at all 04/21/2025 11:12 AM EDT Haily Hathaway MA * Trouble concentrating on things, such as reading the newspaper or watching television Answer Date of Assessment Author Not at all 04/21/2025 11:12 AM EDT Haily Hathaway MA * Moving or speaking so slowly that other people could have noticed? Or the opposite - being so fidgety or restless that you have been moving around a lot more than usual. Answer Date of Assessment Author Not at all 04/21/2025 11:12 AM EDHaily Mcmahan MA * Thoughts that you would be [...] Not difficult at all 04/21/2025 11:12 AM EDT Haily Martínez MA * Over the last 2 weeks, how often have you been bothered by any of the following problems? Question Answer Date of Assessment Author Feeling nervous, anxious, or on edge 0 04/21/2025 11:13 AM Haily Cortez MA Not being able to stop or co ntrol worrying 0 04/21/2025 11:13 AM Haily Cortez MA Worrying too much about diff erent things 0 04/21/2025 11:13 AM Haily Cortez MA Trouble relaxing 0 04/21/2025 11:13 AM Haily Cortez MA Being so restless that it is hard to sit still 0 04/21/2025 11:13 AM Haily Cortez MA Becoming easily annoyed or irritable 0 04/21/2025 11:13 AM Haily Cortez MA Feeling afraid as if somethi ng awful might happen 0 04/21/2025 11:13 AM Haily Cortez MA FLORES-7 Total Score 0 04/21/2025 11:13 AM Haily Cortez MA documented as of this encounter Plan of Treatment Upcoming Encounters Date Type Department Care Team (Late st Contact Info) Description 07/01/2025 10:30 AM EST Office Visit [facility] [address] [place] [address] Marly Palma MD [address] [place] [address] 07/14/2025 12:45 PM EST Office Visit [facility] [address] [place] [address] Herbie Pearsonaris [address] [place] [address] documented as of this encounter Visit Diagnoses Not on filedocumented in this encounter Additional Health Concerns Assessment Noted Time PHQ-9 Depression Total Score: 2 04/21/20 25 11:12 AM EDT documented as of this encounter Care Teams Laboratory Tester Relationship Specialty Start Date End Date Marly Palma MD [address] [place] [address] PCP - General Internal Medicine 03/17/24 documented as of this encounter
== END 2025-04-21 11:52 | disposition home or self-care (01) ==
LOC: HO.HHCX 11:51
PROVIDERS: PCP Internal Medicine; Visit Provider Internal Medicine
DX: M25.562 Pain in left knee (principal)
CPT/HCPCS: 73562

== ENCOUNTER → 2025-04-21 11:54 | Outpatient (BNV) | payer MEDICAID, SELFPAY | PROVIDERS: PCP Internal Medicine; Visit Provider Radiology Diagnostic Radiology | DX: M25.562 Pain in left knee (principal) | CPT/HCPCS: 73562 ==

== ENCOUNTER 2025-05-27 09:28 | Outpatient (AMB) | payer MEDICAID, SELFPAY ==
--- NOTE | 2025-05-27 09:54 | MHC.OFFVIS ---
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 No complaints. Last Pap was negative in 03/21 [facility] Social History Household Members: Spouse and Children Housing: Apartment Alcohol intake: current Alcohol intake frequency: holidays/special occasions only Patient Tobacco Use Status: Never used Tobacco Patient : No Current occupational status: unemployed Gender identity: Female Female Reproductive History Menstrual Duration of menses: 3-5 days Date of last menstrual period: 05/14/25 control method: pills Review of Systems Const All systems reviewed & are unremarkable except as noted in HPI and below Card Reports as per HPI Resp Reports as per HPI GI Reports as per HPI and Reports no additional complaints Reports as per HPI Physical Exam Vital Signs: Last Vital Signs BP 118/72 05/27/25 10:00 BMI result Body Mass Index 24.1 Const General: cooperative, healthy appearing and comfortable Chest Chest palpation & inspection: normal inspection of the chest and normal palpation of entire chest wall Breast/axilla inspection: normal inspection of the breasts and normal inspection of the axillae Breast/axilla palpation: normal palpation of the breasts, normal palpation of the axillae and no axillary lymphadenopathy Resp Effort & Inspection: normal respiratory effort Auscultation: clear to auscultation bilaterally Percussion: percussion normal Cardio Palpation: normal PMI Rate: regular rate Rhythm: regular rhythm Heart sounds: no murmurs and no rubs Peripheral pulses: Peripheral pulses 2+ throughout GI Inspection: Yes normal to inspection Palpation (GI): Soft to palpation, nontender, no guarding, not rigid and No hepatosplenomegaly present Percussion: Yes normal to percussion Auscultation: normal bowel sounds Rectal Exam - Female: deferred General: Yes bladder normal to palpation External Female Exam: No lesion Speculum Exam - Vagina: normal appearance of the vagina, normal palpation, normal vaginal discharge and not erythematous Speculum Exam - Cervix: normal appearance of the cervix and normal palpation Bimanual exam- vagina & uterus: normal bimanual exam, normal palpation, uterine size normal, bladder normal to palpation, consistency normal and normal palpation Bimanual Exam- Adnexa, other: normal adnexae, no masses and no tenderness Assessment & Plan Assessment & Plan (1) Well woman exam: Code(s): Z01.419 - Encounter for gynecological examination (general) (routine) without abnormal findings Category: Medical Plan: Pap not indicated this year Counseled the patient about the recommended dietary allowance of 1000 mg of Calcium & 600 IU of vitamin D. The patient was instructed to perform monthly self-breast exams and to schedule an annual exam in a year; All questions answered and the patient verbalized understanding. Instructed the patient to schedule annual exam in a year Coding Level of Care Code Est Pt Prev Care 18-39y([id number]) Diagnoses Well woman exam Z01.419
[2025-05-27 10:00] VITALS: BP 118/72; BMI 24.1
== END 2025-05-27 10:10 | disposition home or self-care (01) ==
LOC: HO.HWS 09:28
PROVIDERS: PCP Internal Medicine; Visit Provider Obstetrics & Gynecology
DX: Z01.419 Encounter for gynecological examination (general) (routine) without abnormal findings (principal)
CPT/HCPCS: 99395; 99459

== ENCOUNTER → 2025-05-27 09:28 | Outpatient (BNVA) | payer MEDICAID, SELFPAY | PROVIDERS: PCP Internal Medicine; Visit Provider Obstetrics & Gynecology | DX: Z01.419 Encounter for gynecological examination (general) (routine) without abnormal findings (principal); Z79.3 Long term (current) use of hormonal contraceptives | CPT/HCPCS: 99395 ==